=== PATIENT | male | born 1990 | race Caucasian/White ===

== ENCOUNTER 2017-02-17 00:35 | Emergency (ER) | payer SELFPAY ==
[~2017-02-17] VITALS: Ht 180.3 cm; Wt 104.8 kg
[~2017-02-17 00:35] MED LIST: PROM25TA5 PO; ZOFR4TAB3 SL
[2017-02-17 00:55] VITALS: BP 149/97; PULSE 84; RESP 12; TEMP 98.2; O2SAT 97
--- NOTE | 2017-02-17 02:10 | RADHPO ---
EXAM DATE/TIME: 02/17/2017 01:50 [facility] COMPARISON: No previous studies available for comparison. INDICATIONS : Fell hitting left forehead. RADIATION DOSE: 66.40 CTDIvol (mGy) MEDICAL HISTORY : Hypertension. Pancreatitis. Asyhma Pituitary microadenoma SURGICAL HISTORY : None. ENCOUNTER: Initial ACUITY: 1 day PAIN SCALE: 9/10 LOCATION: Left cranial TECHNIQUE: Multiple contiguous axial images were obtained of the head. Using automated exposure control and adj ustment of the mA and/or kV according to patient size, radiation dose was kept as low as reasonably a chievable to obtain optimal diagnostic quality images. FINDINGS: There is a right parietal scalp hematoma. No intracranial hemorrhage, mass effect or shift. No absces ses. No abnormal extra-axial fluid collections. There is chronic opacity in the right maxillary sinus which is diminished in size. No acute bony abnormality. CONCLUSION: 1. No acute intracranial abnormalities. Right parietal scalp hematoma. Latrell Parada MD on February 17, 2017 at 2:06 Board Certified Radiologist. This report was verified electronically.
--- NOTE | 2017-02-17 02:23 | PD ---
HPI Chief Complaint: Head Injury Time Seen by Provider: 01:41 Travel History International Travel<30 days: No Contact w/Intl Traveler<30days: No Traveled to known affect area: No History of Present Illness HPI This is a 26-year-old male who presents to the emergency department having been riding his skateboard when he fell hitting the back of his right head. He says he lost consciousness but is not sure for how long. His mom says he's been intermittently sleepy ever since and hasn't been acting himself. The patient says he has a moderate severity headache in the back of his head, constant with no associated vomiting. He does say he felt nauseous after the incident. He has no other injuries except for some road rash on the side of his abdomen. PFSH Past Medical History ADHD: Yes Asthma: Yes Blood Disorders: No Anxiety: No Depression: No Cancer: No Diabetes: No Diminished Hearing: No Endocrine: No Gastrointestinal Disorders: Yes (report hx of gastroparesis) Genitourinary: No Hypertension: Yes Immune Disorder: No Implanted Vascular Access Dvce: Yes Musculoskeletal: No Neurologic: No Psychiatric: No Reproductive: No Respiratory: Yes (ASTHMA) Immunizations Current: Yes Pancreatitis: Yes (Chronic pancreatitis) Sleep Apnea: No Thyroid Disease: No Tetanus Vaccination: < 5 Years Influenza Vaccination: No PNEUMOCCOCAL Vaccine (Year): 2 Past Surgical History Body Medical Devices: SCREWS/PLATES IN RIGHT WRIST AND RIGHT KNEE Joint Replacement: Yes (RIGHT KNEE AND RIGHT HAND SURGERY ) Other Surgery: Yes (HAND / KNEE SURGERY) Social History Alcohol Use: No Tobacco Use: No Substance Use: No Allergies-Medications (Allergen,Severity, Reaction): Coded Allergies: Ceclor (Verified Allergy, Severe, UNKNOWN REACTION, 02/17/17) Reported Meds & Prescriptions Reported Meds & Active Scripts Active Review of Systems Except as stated in HPI: all other systems reviewed are Neg Physical Exam Narrative GENERAL:Well appearing, no acute distress SKIN: Large posterior scalp hematoma. Abrasion on the right hip and lower abdomen. HEAD: Atraumatic. Normocephalic. EYES: Pupils equal and round. No injection or drainage. ENT: Moist mucous membranes NECK: Trachea midline. No cervical spine tenderness. CARDIOVASCULAR: Regular rate and rhythm. No murmur appreciated. RESPIRATORY: Clear to auscultation. Breath sounds equal bilaterally. GASTROINTESTINAL: Abdomen soft, non-tender, nondistended. MUSCULOSKELETAL: No obvious deformities. NEUROLOGICAL: Awake and alert. No obvious cranial nerve deficits. Moving all extremities. PSYCHIATRIC: Appropriate mood and affect; insight and judgment normal. Data Data Last Documented VS Vital Signs Date Time Temp Pulse Resp B/P Pulse Ox O2 Delivery O2 Flow Rate FiO2 02/17/17 01:27 18 98 Room Air 02/17/17 00:55 98.2 84 149/[address] Brain W/O Iv Contrast(Rout) (02/17/17 ) [facility] Medical Decision Making Medical Screen Exam Complete: Yes Emergency Medical Condition: Yes Interpretation(s) Last [address] 02/17/17 0000 Signed Impressions: Service Date/Time: Sunday, February 17, 2017 01:50 - CONCLUSION: 1. No acute intracranial abnormalities. Right parietal scalp hematoma. Latrell Parada MD Ct Brain W/O Iv Contrast(Rout) (02/17/17 ) Differential Diagnosis Intracranial hemorrhage, concussion, cervical spine fracture Narrative Course This is a 26-year-old male who presents the emergency department having hit his head following falling off a skateboard. He has a large hematoma on exam. CT was obtained which was reassuring. Patient will be discharged home. Diagnosis Primary Impression: Concussion Qualified Code: S06.0X1A - Concussion, with LOC of 30 min or less, initial encounter Additional Impression: Hematoma Patient Instructions: General Instructions Additional Instructions: Return to the emergency department if you develop trouble walking or talking, vomiting, numbness, weakness, or severe headache. A concussion does not usually need treatment. Most concussions get better on their own, but it can take time. Some peoples symptoms go away within minutes to hours. Other people have symptoms for weeks to months. When symptoms last a long time, doctors call it postconcussion syndrome. To help your brain heal after a concussion, you can: Rest your body - Make sure to get plenty of sleep. When you are awake, you should avoid heavy exercise or too much physical activity. Rest your brain - Avoid doing activities that need concentration or a lot of attention. Not drink alcohol for 2 days after the injury Take a pain-relieving medicine, if you have a headache Follow up with your primary care physician in one week if you are not back to your normal self. Med/Other Pt SpecificInfo: No Change to Meds Disposition: 01 DISCHARGE HOME Condition: Stable Stella Atiknson MD Feb 17, 2017 02:23
[2017-02-17 02:48] VITALS: BP 136/78; PULSE 76; RESP 18; O2SAT 98
== END 2017-02-17 02:49 | disposition home or self-care (01) ==
LOC: PHED 00:35
DX: S06.0X1A Concussion with loss of consciousness of 30 minutes or less, initial encounter (principal); S00.03XA Contusion of scalp, initial encounter; V00.131A Fall from skateboard, initial encounter; I10 Essential (primary) hypertension; K86.1 Other chronic pancreatitis
CPT/HCPCS: 70450; 99284

== ENCOUNTER 2017-04-24 18:14 | Observation (INO) | payer SELFPAY ==
[~2017-04-24] VITALS: Ht 180.3 cm; Wt 99.6 kg
[2017-04-24] VITALS (7 sets, daily range): BP systolic 130–152; BP diastolic 61–106; PULSE 62–85; RESP 15–20; TEMP 97.2–98.5; O2SAT 96–99
[~2017-04-24 18:14] MED LIST changes: -PROM25TA5 PO; +PROPOFOL 200 MG/20 ML AMP IV ONE; -ZOFR4TAB3 SL
[2017-04-24] MEDS ORDERED: diphenhydrAMINE HCL 50 MG/ML VIAL IV PUSH ONE (18:30)
[2017-04-24] MEDS ORDERED: SODIUM CHLOR 0.9% 1000 ML INJ 1,000 ML IV ONE (18:30)
[2017-04-24] MEDS ORDERED: METOCLOPRAMIDE HCL 10 MG/2 ML VIAL IV PUSH ONE (18:30)
[2017-04-24] MEDS ORDERED: SODIUM CHLORIDE 0.9% FLUSH 10 ML FLUSH IV FLUSH PRN ×2 (18:30→21:00)
--- NOTE | 2017-04-24 18:34 | PD ---
HPI Chief Complaint: GI Complaint Time Seen by Provider: 18:30 Travel History International Travel<30 days: No Contact w/Intl Traveler<30days: No Traveled to known affect area: No History of Present Illness HPI 26-year-old male patient with history of gastroparesis, chronic pancreatitis, presents to the ER today for 1 week history of nausea, vomiting, and epigastric tenderness at 10/10 abdominal pains. He denies any fevers, diarrhea, or any other symptoms. He states the pain radiates to his back. Modifying Factors: None Associated Signs & Symptoms: Nausea, vomiting, epigastric abdominal pain Risk Factors: History of gastroparesis and pancreatitis PFSH Past Medical History ADHD: Yes Asthma: Yes Autoimmune Disease: No Blood Disorders: No Anxiety: No Depression: No Cancer: No Diabetes: No Diminished Hearing: No Endocrine: No Gastrointestinal Disorders: Yes (report hx of gastroparesis) Genitourinary: No Hypertension: Yes Immune Disorder: No Implanted Vascular Access Dvce: Yes Musculoskeletal: No Neurologic: No Psychiatric: No Reproductive: No Respiratory: Yes (ASTHMA) Immunizations Current: Yes Pancreatitis: Yes (Chronic pancreatitis) Sleep Apnea: No Thyroid Disease: No Tetanus Vaccination: < 5 Years Influenza Vaccination: Yes PNEUMOCCOCAL Vaccine (Year): 2 Past Surgical History Body Medical Devices: SCREWS/PLATES IN RIGHT WRIST AND RIGHT KNEE Joint Replacement: Yes (RIGHT KNEE AND RIGHT HAND SURGERY ) Other Surgery: Yes (HAND / KNEE SURGERY) Social History Alcohol Use: No Tobacco Use: No Substance Use: No Allergies-Medications (Allergen,Severity, Reaction): Coded Allergies: cefaclor (Unverified Allergy, Severe, UNKNOWN REACTION, 04/24/17) Reported Meds & Prescriptions Reported Meds & Active Scripts Active No Active Prescriptions or Reported Medications Review of Systems Except as stated in HPI: all other systems reviewed are Neg Physical Exam Narrative GENERAL: Well-developed young white male patient currently in mild distress. Awake and oriented 3. SKIN: Focused skin assessment warm/dry. HEAD: Atraumatic. Normocephalic. EYES: Pupils equal and round. No scleral icterus. No injection or drainage. ENT: No nasal bleeding or discharge. Mucous membranes pink and moist. NECK: Trachea midline. No JVD. CARDIOVASCULAR: Regular rate and rhythm. No murmur appreciated. RESPIRATORY: No accessory muscle use. Clear to auscultation. Breath sounds equal bilaterally. GASTROINTESTINAL: Abdomen soft, epigastric and left upper quadrant tenderness without guarding or rebound, nondistended. Hepatic and splenic margins not palpable. MUSCULOSKELETAL: No obvious deformities. No clubbing. No cyanosis. No edema. NEUROLOGICAL: Awake and alert. No obvious cranial nerve deficits. Motor grossly within normal limits. Normal speech. PSYCHIATRIC: Appropriate mood and affect; insight and judgment normal. Data Data Last Documented VS Vital Signs Date Time Temp Pulse Resp B/P (MAP) Pulse Ox O2 Delivery O2 Flow Rate FiO2 04/24/17 18:31 97 Room Air 04/24/17 18:18 98.0 78 15 152/98 (116) Orders Orders Complete Blood Count With Diff (04/24/17 18:26) Comprehensive Metabolic Panel (04/24/17 18:) Lipase (04/24/17 18:) Iv Access Insert/Monitor (04/24/17 18:26) Ecg Monitoring (04/24/17 18:26) Oximetry (04/24/17 18:) Sodium Chloride 0.9% Flush (Ns Flush) (04/24/17 18:30) Sodium Chlor 0.9% 1000 Ml Inj (Ns 1000 M (04/24/17 18:30) Metoclopramide Inj (Reglan Inj) (04/24/17 18:30) Diphenhydramine Inj (Benadryl Inj) (04/24/17 18:30) Labs Laboratory Tests Test 04/24/17 18:30 White Blood Count 8.6 TH/MM3 Red Blood Count 5.44 MIL/MM3 Hemoglobin 16.1 GM/DL Hematocrit 47.7 % Mean Corpuscular Volume 87.6 FL Mean Corpuscular Hemoglobin 29.6 PG Mean Corpuscular Hemoglobin Concent 33.8 % Red Cell Distribution Width 11.7 % Platelet Count 258 TH/MM3 Mean Platelet Volume 8.6 FL Neutrophils (%) (Auto) 81.3 % Lymphocytes (%) (Auto) 13.1 % Monocytes (%) (Auto) 4.6 % Eosinophils (%) (Auto) 0.3 % Basophils (%) (Auto) 0.7 % Neutrophils # (Auto) 7.0 TH/MM3 Lymphocytes # (Auto) 1.1 TH/MM3 Monocytes # (Auto) 0.4 TH/MM3 Eosinophils # (Auto) 0.0 TH/MM3 Basophils # (Auto) 0.1 TH/MM3 CBC Comment DIFF FINAL Differential Comment Sodium Level 139 MEQ/L Potassium Level 3.8 MEQ/L Chloride Level 105 MEQ/L [facility]DM Medical Decision Making Medical Screen Exam Complete: Yes Emergency Medical Condition: Yes Medical Record Reviewed: Yes Interpretation(s) Laboratory Tests Test 04/24/17 18:30 Neutrophils (%) (Auto) 81.3 % (16.0-70.0) Differential Diagnosis Nausea, vomiting, abdominal pains: gastroparesis versus gastritis versus pancreatitis versus gastritis versus other acute intra-abdominal processes Narrative Course Lab work was ordered and IV fluids, Reglan, and Benadryl ordered for the patient. Physician Communication Physician Communication Case is signed out to Dr. Johnson at 7 PM pending lab work for disposition. Diagnosis Primary Impression: Nausea & vomiting Scripts No Active Prescriptions or Reported Meds Condition: Stable Kaylen Almazan MD Apr 24, 2017 18:34
[2017-04-24 18:44] LABS: BASOPHIL # 0.1 TH/MM3 (0-0.2); BASOPHIL % 0.7 % (0.0-2.0); EOSINOPHIL % 0.3 % (0.0-4.0); HEMATOCRIT 47.7 % (39.0-51.0); HEMO FLAGS DIFF FINAL; LYMPH % 13.1 % (9.0-44.0); LYMPHOCYTE # 1.1 TH/MM3 (1.0-4.8); MEAN CELL VOLUME 87.6 FL (80.0-100.0); MEAN CORPUSCULAR HEMOGLOBIN 29.6 PG (27.0-34.0); MEAN CORPUSCULAR HGB CONC 33.8 % (32.0-36.0); MONO % 4.6 % (0.0-8.0); NEUT % 81.3 % (16.0-70.0); PLATELET COUNT 258 TH/MM3 (150-450); RED BLOOD COUNT 5.44 MIL/MM3 (4.50-5.90); RED CELL DISTRIBUTION WIDTH 11.7 % (11.6-17.2); WHITE BLOOD COUNT 8.6 TH/MM3 (4.0-11.0)
[2017-04-24 18:52] LABS: CHLORIDE 105 MEQ/L (98-107); POTASSIUM 3.8 MEQ/L (3.5-5.1); SODIUM (NA) 139 MEQ/L (136-145)
[2017-04-24 18:56] LABS: ANION GAP 5 MEQ/L (5-15); BICARBONATE 28.6 MEQ/L (21.0-32.0)
[2017-04-24 18:57] LABS: BLOOD UREA NITROGEN 9 MG/DL (7-18)
[2017-04-24 18:59] LABS: ALT (GPT) 20 U/L (12-78); AST (GOT) 12 U/L (15-37); GLOMERULAR FILTRATION RATE 91 ML/MIN (>89)
[2017-04-24 19:01] LABS: TOTAL BILIRUBIN ADULT 0.8 MG/DL (0.2-1.0)
[2017-04-24 19:02] LABS: ALKALINE PHOSPHATASE 49 U/L (45-117)
--- NOTE | 2017-04-24 19:40 | PD ---
Physical Exam Time Seen by Provider: 19:31 Narrative The patient is a 26-year-old male that has had since age 18 episodes of nausea and vomiting. He is brought in today by his mother because of vomiting for one month. He has not been vomiting blood. The mother states he has been seen by 3 kettle worker and they came up with chronic pancreatitis, gastroparesis but endoscopies have been negative according to the mother. The mother is extremely angry and frustrated. The patient denies any fever. He cannot hold a job because of his vomiting and has tried 5 different jobs in the last 3 months. He does not currently have a primary care physician or a kettle worker. He does not drink alcohol and he does not abuse drugs. Lactose intolerant diet has been tried without success. The mother is extremely frustrated and states her son was lying on the floor crying today. The mother states he has lost 40 pounds in the last 3 months. Data Data Last Documented VS Vital Signs Date Time Temp Pulse Resp B/P (MAP) Pulse Ox O2 Delivery O2 Flow Rate FiO2 04/24/17 20:25 98.2 85 18 133/81 (98) 99 Room Air Orders Orders Complete Blood Count With Diff (04/24/17 18:26) Comprehensive Metabolic Panel (04/24/17 18:26) Lipase (04/24/17 18:26) Iv Access Insert/Monitor (04/24/17 18:26) Ecg Monitoring (04/24/17 18:26) Oximetry (04/24/17 18:26) Sodium Chloride 0.9% Flush (Ns Flush) (04/24/17 18:30) Sodium Chlor 0.9% 1000 Ml Inj (Ns 1000 M (04/24/17 18:30) Metoclopramide Inj (Reglan Inj) (04/24/17 18:30) Diphenhydramine Inj (Benadryl Inj) (04/24/17 18:30) Hydromorphone Pf Inj (Dilaudid Pf Inj) (04/24/17 20:30) Ondansetron Inj (Zofran Inj) (04/24/17 20:30) Labs Laboratory Tests Test 04/24/17 18:30 White Blood Count 8.6 TH/MM3 Red Blood Count 5.44 MIL/MM3 Hemoglobin 16.1 GM/DL Hematocrit 47.7 % Mean Corpuscular Volume 87.6 FL Mean Corpuscular Hemoglobin 29.6 PG Mean Corpuscular Hemoglobin Concent 33.8 % Red Cell Distribution Width 11.7 % Platelet Count 258 TH/MM3 Mean Platelet Volume 8.6 FL Neutrophils (%) (Auto) 81.3 % Lymphocytes (%) (Auto) 13.1 % Monocytes (%) (Auto) 4.6 % Eosinophils (%) (Auto) 0.3 % Basophils (%) (Auto) 0.7 % Neutrophils # (Auto) 7.0 TH/MM3 Lymphocytes # (Auto) 1.1 TH/MM3 Monocytes # (Auto) 0.4 TH/MM3 Eosinophils # (Auto) 0.0 TH/MM3 Basophils # (Auto) 0.1 TH/MM3 CBC Comment DIFF FINAL Differential Comment Blood Urea Nitrogen 9 MG/DL Creatinine 1.00 MG/DL Random Glucose 107 MG/DL Total Protein 7.4 GM/DL Albumin 4.0 GM/DL Calcium Level 8.8 MG/DL Alkaline Phosphatase 49 U/L Aspartate Amino Transf (AST/SGOT) 12 U/L Alanine Aminotransferase (ALT/SGPT) 20 U/L Total Bilirubin 0.8 MG/DL Sodium Level 139 MEQ/L Potassium Level 3.8 MEQ/L Chloride Level 105 MEQ/L Carbon Dioxide Level 28.6 MEQ/L Anion Gap 5 MEQ/L Estimat Glomerular Filtration Rate 91 ML/MIN Lipase 186 U/L [facility] Medical Record Reviewed: Yes Supervised Visit with MAGO: Yes Differential Diagnosis Gastroparesis, electrolyte disorder, dehydration, pancreatitis, ulcer pain Narrative Course The patient has recurrent vomiting etiology undetermined. Unfortunately, gastroenterology has been unable to clearly define his problem. Nevertheless, the patient needs to follow-up with a kettle worker. Mother says the patient has lost 40 pounds in the last 3 months. The patient is not and then does not look malnourished. Diagnosis Primary Impression: Intractable abdominal pain Additional Impression: Intractable vomiting Ruled Out: Nausea & vomiting, Abdominal pain Admitting Information Admitting Physician Requests: Admit Scripts No Active Prescriptions or Reported Meds Condition: Stable Kana Johnson MD Apr 24, 2017 19:40
[2017-04-24] MEDS ORDERED: HYDROmorphone HCL PF 1 MG/ML VIAL IVP ONE (20:30)
[2017-04-24] MEDS ORDERED: ONDANSETRON HCL 4 MG/2 ML VIAL IV ONE (20:30)
[2017-04-24] MEDS: SODIUM CHLORIDE 0.9% FLUSH 10 ML FLUSH IV FLUSH SCH (21:00)
[2017-04-24] MEDS ORDERED: METOCLOPRAMIDE HCL 10 MG/2 ML VIAL IV PUSH PRN (21:00)
[2017-04-24] MEDS ORDERED: NALOXONE HCL 0.4 MG/ML AMP IV PRN (21:00)
[2017-04-24] MEDS: SODIUM CHLOR 0.9% 1000 ML INJ 1,000 ML IV SCH (21:50)
[2017-04-25] VITALS (7 sets, daily range): BP systolic 127–147; BP diastolic 68–106; PULSE 62–76; RESP 16–20; TEMP 96.7–98.5; O2SAT 95–99
[2017-04-25] MEDS: HYDROmorphone HCL PF 1 MG/ML VIAL IV PUSH PRN ×5 (00:37→21:44)
[2017-04-25] MEDS: SODIUM CHLOR 0.9% 1000 ML INJ 1,000 ML IV SCH ×2 (06:26→08:32)
[2017-04-25 06:49] LABS: CHLORIDE 107 MEQ/L (98-107); POTASSIUM 3.6 MEQ/L (3.5-5.1); SODIUM (NA) 141 MEQ/L (136-145)
[2017-04-25 06:50] LABS: AUTOMATED NEUTROPHIL # 3.8 TH/MM3 (1.8-7.7); BASOPHIL % 0.2 % (0.0-2.0); EOSINOPHIL # 0.2 TH/MM3 (0-0.4); EOSINOPHIL % 3.1 % (0.0-4.0); HEMO FLAGS DIFF FINAL; LYMPH % 34.3 % (9.0-44.0); LYMPHOCYTE # 2.4 TH/MM3 (1.0-4.8); MEAN CELL VOLUME 87.9 FL (80.0-100.0); MEAN CORPUSCULAR HEMOGLOBIN 30.1 PG (27.0-34.0); MEAN CORPUSCULAR HGB CONC 34.2 % (32.0-36.0); MONO % 6.8 % (0.0-8.0); NEUT % 55.6 % (16.0-70.0); PLATELET COUNT 205 TH/MM3 (150-450); RED BLOOD COUNT 4.77 MIL/MM3 (4.50-5.90); RED CELL DISTRIBUTION WIDTH 12.1 % (11.6-17.2); WHITE BLOOD COUNT 6.9 TH/MM3 (4.0-11.0)
[2017-04-25 07:15] LABS: ALKALINE PHOSPHATASE 41 U/L (45-117); ALT (GPT) 15 U/L (12-78); ANION GAP 6 MEQ/L (5-15); AST (GOT) 9 U/L (15-37); BICARBONATE 27.9 MEQ/L (21.0-32.0); BLOOD UREA NITROGEN 6 MG/DL (7-18); GLOMERULAR FILTRATION RATE 97 ML/MIN (>89)
[2017-04-25] MEDS: SODIUM CHLORIDE 0.9% FLUSH 10 ML FLUSH IV FLUSH SCH ×2 (08:50→20:23)
--- NOTE | 2017-04-25 20:42 | HHI.HP ---
[facility] No Primary Care Physician Admission Diagnosis intractable abdominal pain/vomiting Diagnoses: Travel History International Travel<30 Days: No Contact w/Intl Traveler <30 Da: No Traveled to Known Affected Are: No History of Present Illness 26-year-old male with a history of recurrent pancreatitis, who presents with a 2 month history of worsening twisting epigastric pain radiating to back, with nausea and vomiting over the last 2 days, unable to keep anything down. Patient reports weight loss of 40 pounds over the past 2 months secondary to nausea, pain, decreased appetite. He denies any fevers, constipation, diarrhea. Review of Systems Except as stated in HPI: all other systems reviewed are Neg Past Family Social History Past Medical History Asthma ADHD Gastroparesis Pancreatitis Hypertension. Patient states this is only when he has pain. Past Surgical History Right wrist and right knee surgery. Reported Medications Reported Meds & Active Scripts Active No Active Prescriptions or Reported Medications Allergies: Coded Allergies: cefaclor (Unverified Allergy, Severe, UNKNOWN REACTION, 04/24/17) Family History Mother with chronic pancreatitis. Father hypertension Social History Nonsmoker. Nondrinker. Patient denies illicit drugs. Physical Exam Vital Signs Vital Signs Date Time Temp Pulse Resp B/P (MAP) Pulse Ox O2 Delivery O2 Flow Rate FiO2 04/25/17 16:00 97.5 74 16 147/97 (114) 95 04/25/17 12:00 97.8 63 16 137/84 (101) 98 04/25/17 08:00 62 04/25/17 08:00 97.4 63 16 127/68 (87) 95 04/25/17 04:00 96.7 76 18 128/73 (91) 96 04/25/17 00:00 97.2 67 20 144/106 (119) 99 04/24/17 23:46 62 04/24/17 23:35 97.2 67 20 144/106 (119) 99 04/24/17 23:00 98.5 84 18 130/61 (84) 95 04/24/17 21:53 98.5 68 18 131/66 (87) 96 Room Air Physical Exam GENERAL: This is a well-nourished, well-developed patient,who appears uncomfortable. Alert and oriented 3. SKIN: No rashes, ecchymoses or lesions. Cool and dry. HEAD: Atraumatic. Normocephalic. No temporal or scalp tenderness. EYES: Pupils equal round and reactive. Extraocular motions intact. No scleral icterus. No injection or drainage. ENT: Nose without bleeding, purulent drainage or septal hematoma. Throat without erythema, tonsillar hypertrophy or exudate. Uvula midline. Airway patent. NECK: Trachea midline. No JVD or lymphadenopathy. Supple, nontender, no meningeal signs. CARDIOVASCULAR: Regular rate and rhythm without murmurs, gallops, or rubs. RESPIRATORY: Clear to auscultation. Breath sounds equal bilaterally. No wheezes , rales, or rhonchi. GASTROINTESTINAL: Abdomen soft,tender to moderate palpation in the epigastrium. Positive bowel sounds. No rebound or guarding. MUSCULOSKELETAL: Extremities without clubbing, cyanosis, or edema. No joint tenderness, effusion, or edema noted. No calf tenderness. Negative Homans sign bilaterally. NEUROLOGICAL: Awake and alert. Cranial nerves II through XII intact. Motor and sensory grossly within normal limits. Five out of 5 muscle strength in all muscle groups. Normal speech. Laboratory Laboratory Tests Test 04/25/17 05:30 04/25/17 19:45 White Blood Count 6.9 Red Blood Count 4.77 Hemoglobin 14.4 Hematocrit 42.0 Mean Corpuscular Volume 87.9 Mean Corpuscular Hemoglobin 30.1 Mean Corpuscular Hemoglobin Concent 34.2 Red Cell Distribution Width 12.1 Platelet Count 205 Mean Platelet Volume 9.0 Neutrophils (%) (Auto) 55.6 Lymphocytes (%) (Auto) 34.3 Monocytes (%) (Auto) 6.8 Eosinophils (%) (Auto) 3.1 Basophils (%) (Auto) 0.2 Neutrophils # (Auto) 3.8 Lymphocytes # (Auto) 2.4 Monocytes # (Auto) 0.5 Eosinophils # (Auto) 0.2 Basophils # (Auto) 0.0 CBC Comment DIFF FINAL Differential Comment Blood Urea Nitrogen 6 Creatinine 0.95 Random Glucose 83 Total Protein 6.1 Albumin 3.1 Calcium Level 8.0 Alkaline Phosphatase 41 Aspartate Amino Transf (AST/SGOT) 9 Alanine Aminotransferase (ALT/SGPT) 15 Total Bilirubin 1.0 Sodium Level 141 Potassium Level 3.6 Chloride Level 107 Carbon Dioxide Level 27.9 Anion Gap 6 Estimat Glomerular Filtration Rate 97 Lipase 457 Urine Opiates Screen NEG Urine Barbiturates Screen NEG Urine Amphetamines Screen NEG Urine Benzodiazepines Screen NEG Urine Cocaine Screen NEG Urine Cannabinoids Screen POS Result Diagram: 04/25/1752904/25/17529 Caprini VTE Risk Assessment Caprini VTE Risk Assessment: No/Low Risk (score <= 1) Caprini Risk Assessment Model Point Value = 1 Point Value = 2 Point Value = 3 Point Value = 5 Age 41-60 Minor surgery BMI > 25 kg/m2 Swollen legs Varicose veins or History of unexplained or recurrent spontaneous Oral contraceptives or hormone replacement Sepsis (< 1 month) Serious lung disease, including pneumonia (< 1 month) Abnormal pulmonary function Acute myocardial infarction Congestive heart failure (< 1 month) History of inflammatory bowel disease Medical patient at bed rest Age 61-74 Arthroscopic surgery Major open surgery (> 45 min) Laparoscopic surgery (> 45 min) Malignancy Confined to bed (> 72 hours) Immobilizing plaster cast Central venous access Age >= 75 History of VTE Family history of VTE Factor V Leiden Prothrombin [id number] Lupus anticoagulant Anticardiolipin antibodies Elevated serum homocysteine Heparin-induced thrombocytopenia Other congenital or acquired thrombophilia Stroke (< 1 month) Elective arthroplasty Hip, pelvis, or leg fracture Acute spinal cord injury (< 1 month) Prophylaxis Regimen Total Risk Factor Score Risk Level Prophylaxis Regimen 0-1 Low Early ambulation 2 Moderate Order ONE of the following: *Sequential Compression Device (SCD) *Heparin 5000 units SQ BID 3-4 Higher Order ONE of the following medications: *Heparin 5000 units SQ TID *Enoxaparin/Lovenox 40 mg SQ daily (WT < 150 kg, CrCl > 30 mL/min) *Enoxaparin/Lovenox 30 mg SQ daily (WT < 150 kg, CrCl > 10-29 mL/min) *Enoxaparin/Lovenox 30 mg SQ BID (WT < 150 kg, CrCl > 30 mL/min) AND/OR *Sequential Compression Device (SCD) 5 or more Highest Order ONE of the following medications: *Heparin 5000 units SQ TID (Preferred with Epidurals) *Enoxaparin/Lovenox 40 mg SQ daily (WT < 150 kg, CrCl > 30 mL/min) *Enoxaparin/Lovenox 30 mg SQ daily (WT < 150 kg, CrCl > 10-29 mL/min) *Enoxaparin/Lovenox 30 mg SQ BID (WT < 150 kg, CrCl > 30 mL/min) AND *Sequential Compression Device (SCD) Assessment and Plan Assessment and Plan //Recurrent pancreatitis. //Nausea and vomiting. -Lipase in the 400s. -CT abdomen last month but no acute pancreatic findings. Lipase could be elevated secondary to nausea and vomiting. There is a possibility of marijuana hyperemesis syndrome. Patient denies marijuana use, however positive on tox screen. -Abdominal film ordered. -Due to recurrent nature pancreatitis, nausea, vomiting, history of gastroparesis. We'll consult gastroenterology. Continue antiemetics and IV fluids. //Marijuana use. Suspected. Positive urine toxicology screen. Patient denies. We'll discuss with the patient. Discussed Condition With patient, nurse. Ricardo Raines MD Apr 25, 2017 20:42
--- NOTE | 2017-04-25 22:42 | RADRPT ---
EXAM DATE/TIME: 04/25/2017 22:08 [facility] COMPARISON: No previous studies available for comparison. INDICATIONS : Abdominal pain. MEDICAL HISTORY : Hypertension. Pancreatitis. Asthma, Gastroparesis SURGICAL HISTORY : None. ENCOUNTER: Initial ACUITY: 1 day PAIN SCORE: 7/10 LOCATION: all quadrants. FINDINGS: Supine view of the abdomen was performed. The abdominal bowel gas pattern is nonspecific without twyla dence for obstruction. No acute bony abnormality. CONCLUSION: 1. No acute findings. Latrell Parada MD on April 25, 2017 at 22:39 Board Certified Radiologist. This report was verified electronically.
[2017-04-26] VITALS: BP 145/97; PULSE 69; RESP 20; TEMP 97.1; O2SAT 99
[2017-04-26] MEDS: HYDROmorphone HCL PF 1 MG/ML VIAL IV PUSH PRN ×6 (01:41→23:16)
[2017-04-26] MEDS: SODIUM CHLOR 0.9% 1000 ML INJ 1,000 ML IV SCH ×3 (01:51→23:14)
[2017-04-26 05:56] LABS: AUTOMATED NEUTROPHIL # 3.6 TH/MM3 (1.8-7.7); BASOPHIL # 0.1 TH/MM3 (0-0.2); EOSINOPHIL # 0.2 TH/MM3 (0-0.4); EOSINOPHIL % 3.4 % (0.0-4.0); HEMATOCRIT 44.9 % (39.0-51.0); HEMO FLAGS DIFF FINAL; LYMPH % 35.4 % (9.0-44.0); LYMPHOCYTE # 2.5 TH/MM3 (1.0-4.8); MEAN CELL VOLUME 87.9 FL (80.0-100.0); MEAN CORPUSCULAR HEMOGLOBIN 30.1 PG (27.0-34.0); MEAN CORPUSCULAR HGB CONC 34.2 % (32.0-36.0); MONO % 7.4 % (0.0-8.0); NEUT % 52.8 % (16.0-70.0); PLATELET COUNT 218 TH/MM3 (150-450); RED BLOOD COUNT 5.11 MIL/MM3 (4.50-5.90); RED CELL DISTRIBUTION WIDTH 11.9 % (11.6-17.2); WHITE BLOOD COUNT 6.9 TH/MM3 (4.0-11.0)
[2017-04-26 06:09] LABS: POTASSIUM 3.4 MEQ/L (3.5-5.1)
[2017-04-26 06:11] LABS: BICARBONATE 26.1 MEQ/L (21.0-32.0)
[2017-04-26 08:00] VITALS: BP 120/79; PULSE 51; PULSE 56; RESP 17; TEMP 97.1; O2SAT 95
[2017-04-26] MEDS: SODIUM CHLORIDE 0.9% FLUSH 10 ML FLUSH IV FLUSH SCH ×2 (08:39→22:13)
--- NOTE | 2017-04-26 10:17 | RADRPT ---
EXAM DATE/TIME: 04/26/2017 08:10 [facility] COMPARISON: CT ABDOMEN & PELVIS W/O CONTRAST, April 08, 2016, 2:25. INDICATIONS : Increased lab values. Pancreatitis. MEDICAL HISTORY : Hypertension. Asthma. Gastroparesis. Chronic pancreatitis. SURGICAL HISTORY : Orthopedic surgery, right hand and right knee. ENCOUNTER: Initial ACUITY: 1 day PAIN SCORE: 5/10 LOCATION: Abdomen. MEASUREMENTS: LIVER: 14.0 cm length COMMON DUCT: 4 mm RIGHT KIDNEY: 10.0 X 4.6 X 4.9 cm SPLEEN: 10.7 cm length FINDINGS: LIVER: Normal echotexture without focal lesion or ductal dilatation. COMMON DUCT: No intraluminal mass or stone visualized. GALLBLADDER: Contains no stones, demonstrates no wall thickening or pericholecystic fluid. PANCREAS: Not adequately visualized secondary to overlying bowel gas. RIGHT KIDNEY: No hydronephrosis, stone or mass. SPLEEN: No focal lesion. CONCLUSION: 1. Examination is within normal limits. 2. Please note that the pancreas is not adequately visualized due to bowel gas. Good Trujillo MD on April 26, 2017 at 10:14 Board Certified Radiologist. This report was verified electronically.
[2017-04-26 12:00] VITALS: BP 118/75; PULSE 65; RESP 18; TEMP 97.6; O2SAT 96
[2017-04-26] MEDS: ONDANSETRON HCL 4 MG/2 ML VIAL IVP PRN ×2 (12:13→22:13)
[2017-04-26] MEDS ORDERED: DRONABINOL 5 MG CAP PO ONE (13:00)
--- NOTE | 2017-04-26 15:32 | HHI.PR ---
Subjective Remarks Patient seen this morning. Reports continued nausea, without vomiting. Reports abdominal pain continues. I notify patient of positive urine for marijuana. He does state that hot showers make his nausea go away. He will try to quit marijuana to see if this helps with his nausea. Objective Vital Signs Date Time Temp Pulse Resp B/P (MAP) Pulse Ox O2 Delivery O2 Flow Rate FiO2 04/26/17 12:00 97.6 65 18 118/75 (89) 96 04/26/17 08:00 97.1 56 17 120/79 (93) 95 04/26/17 00:00 97.1 69 20 145/97 (113) 99 04/25/17 20:25 64 04/25/17 20:00 98.5 70 20 145/96 (112) 98 04/25/17 16:00 97.5 74 16 147/97 (114) 95 I/O 04/25/17 04/25/17 04/25/17 04/26/17 04/26/17 04/26/17 06:59 14:59 22:59 06:59 14:59 22:59 Intake Total 440.00 ml 894 ml 2856 ml 0 ml 0 ml Output Total 250 ml Balance 440.00 ml 894 ml 2606 ml 0 ml 0 ml Intake Oral 310 ml 960 ml 0 ml 0 ml IV Total 130.00 ml 894 ml 1896 ml Output Urine Total 250 ml # Voids 1 16 2 # Bowel Movements 0 0 0 Result Diagram: 04/26/17 0505 04/26/17 0505 Objective Remarks GENERAL: Patient lying in bed. Sleeping, wakes up for exam. Alert and oriented 3. SKIN: Warm and dry. HEAD: Normocephalic. EYES: No scleral icterus. No injection or drainage. NECK: Supple, trachea midline. No JVD. CARDIOVASCULAR: Regular rate and rhythm without murmurs, gallops, or rubs. RESPIRATORY: Breath sounds equal bilaterally. No accessory muscle use. GASTROINTESTINAL: Abdomen soft. Tender to moderate palpation in the epigastrium. MUSCULOSKELETAL: No cyanosis, or edema. BACK: Nontender without obvious deformity. No CVA tenderness. A/P Assessment and Plan ==04/26/17========= -Hypokalemia. Potassium 3.4. Replaced. -Reviewed abdominal film and ultrasound, both negative. -Suspected marijuana hyperemesis syndrome. We'll try Marinol which is on the formulary for nausea. Gastroenterology following. Appreciate assistance. //Recurrent pancreatitis. //Nausea and vomiting. //Suspected marijuana hyperemesis syndrome. //History of gastroparesis -Lipase in the 400s. Possibly from vomiting. -CT abdomen last month but no acute pancreatic findings. Lipase could be elevated secondary to nausea and vomiting. There is a possibility of marijuana hyperemesis syndrome. Patient denies marijuana use, however positive on tox screen. -Abdominal film reviewed and neg. US reviewed and negative. -We'll try Marinol for nausea. -Follow up GI recommendations. //Marijuana use. -Patient says he will try to stop smoking Discharge Planning Possible discharge home tomorrow if nausea and pain improved. Ricardo Raines MD Apr 26, 2017 15:32
[2017-04-26 16:00] VITALS: BP_SYST 126; BP_SYST 129; BP_DIAS 66; BP_DIAS 85; PULSE 63; PULSE 83; RESP 17; RESP 18; TEMP 96.9; TEMP 97.5; O2SAT 99
[2017-04-26] MEDS: DRONABINOL 5 MG CAP PO SCH (16:00)
--- NOTE | 2017-04-26 18:19 | MB ---
cc: ROMELIA MARTEL M.D. DATE OF CONSULTATION: 04/26/2017. REASON FOR CONSULTATION: Abdominal pain. Recurrent pancreatitis. Nausea and vomiting. REFERRING PHYSICIAN: Dr. Raines. HISTORY OF PRESENT ILLNESS: Mr. Hayes is a 26-year-old gentleman who was diagnosed with gastroparesis at age 19. The patient had worsening abdominal pain for the last couple of days and that is why he came to the emergency room for further evaluation and treatment. The patient states he is also having severe nausea and vomiting. No regurgitation. He reports having lost 40 pounds, even though looking back at his weight, it seems to be stable over the last ten years at least. He does have recurrent pancreatitis, etiology of this unknown. He denies any alcohol use. The patient had an endoscopy in 2009 essentially suggestive of gastritis, esophagitis and biopsies were negative. He does report using marijuana on a regular basis, which could be a cause of his problems. He denies any constipation or diarrhea. The patient reports pain mostly in the epigastrium triggered by food. PAST MEDICAL HISTORY: 1. Asthma. 2. Attention deficit hyperactivity disorder. 3. Gastroparesis. 4. Pancreatitis. 5. Hypertension. PAST SURGICAL HISTORY: 1. Right wrist surgery. 2. Right knee surgery. ALLERGIES: CEFACLOR. FAMILY HISTORY: The mother had high blood pressure and pancreatitis. SOCIAL HISTORY: Denies smoking, drinking or drug use other than marijuana. REVIEW OF SYSTEMS: CONSTITUTIONAL: He denies any fever or chills. He reports weight loss, decreased appetite. HEAD, EYES, EARS, NOSE, THROAT: No alteration in baseline hearing or visual acuity. PULMONARY: Denies any chest pain or shortness of breath. GASTROINTESTINAL: As above. GENITOURINARY: Denies any dysuria or hematuria. HEMATOLOGICAL: No history of anemia or bleeding disorder. SKIN: No alteration in baseline skin lesions. NEUROLOGICAL: No history of TIA or CVA kind of symptoms. PHYSICAL EXAMINATION: GENERAL: On clinical exam, he is sitting in bed in no acute distress. VITAL SIGNS: Temperature is 96.9, pulse 63, respirations 18, blood pressure 129/85. HEAD, EYES, EARS, NOSE, THROAT: Pupils equal, round and reactive to light and accommodation. NECK: No jugular venous distention. No lymphadenopathy. CHEST: Clear to auscultation and palpation. CARDIOVASCULAR: S1-S2 no murmur. ABDOMEN: Abdomen soft and nontender. Bowel sounds are present. BIODIESEL PRODUCT MANAGER: Awake, alert and oriented times three. No focal signs identified. LABORATORY DATA: His white count is 6.9, hemoglobin 15.4, platelet count 218,000. Chemistry: Albumin is 3.1, lipase 457, glucose 85 (on admission 107). IMAGING STUDIES: The patient had an ultrasound of the abdomen which showed a normal examination. Last CT abdomen and pelvis was done in 2014 which showed some kidney stones, otherwise negative. IMPRESSION: Mr. Hayes is a 26-year-old gentleman with recurrent abdominal pain, nausea and vomiting, possibly secondary to gastroparesis and pancreatitis, nausea and vomiting, history of heavy marijuana use, possible cannabinoid syndrome, history of pancreatitis unclear etiology, history of gastroparesis, etiology unclear, possible triggered by cannabis use. RECOMMENDATIONS: 1. Upper endoscopy will be scheduled in the morning to rule out peptic ulcer disease and celiac disease. 2. Will order an MRCP to further evaluate for any other pathology for his recurrent pancreatitis. 3. Supportive care. 4. IV hydration. 5. Continue proton pump inhibitor. 6. Reglan PRN. 7. The patient was counselled about stopping cannabis use, which could be the cause of his symptoms. The risks and benefits were discussed with the patient and his mother. Thank you again. Will continue to follow the patient along with you. MD REGGIE KennyB/DEONNA /5:56 PM /6:[address] [facility]
[2017-04-26 20:00] VITALS: BP 120/82; PULSE 59; PULSE 61; RESP 16; TEMP 97.6; O2SAT 98
[2017-04-27] VITALS: BP 136/96; PULSE 50; RESP 18; TEMP 96.2; O2SAT 96
[2017-04-27 04:00] VITALS: BP 131/86; PULSE 62; RESP 18; TEMP 96; O2SAT 96
[2017-04-27] MEDS: HYDROmorphone HCL PF 1 MG/ML VIAL IV PUSH PRN ×3 (05:25→15:56)
[2017-04-27 06:45] VITALS: BP 131/86; PULSE 62; RESP 18; TEMP 98; O2SAT 96
[2017-04-27 06:56] LABS: AUTOMATED NEUTROPHIL # 3.8 TH/MM3 (1.8-7.7); BASOPHIL % 0.2 % (0.0-2.0); EOSINOPHIL # 0.2 TH/MM3 (0-0.4); EOSINOPHIL % 2.9 % (0.0-4.0); HEMO FLAGS DIFF FINAL; LYMPH % 30.1 % (9.0-44.0); LYMPHOCYTE # 1.9 TH/MM3 (1.0-4.8); MEAN CELL VOLUME 87.6 FL (80.0-100.0); MEAN CORPUSCULAR HGB CONC 34.2 % (32.0-36.0); MONO % 8.6 % (0.0-8.0); NEUT % 58.2 % (16.0-70.0); PLATELET COUNT 219 TH/MM3 (150-450); RED BLOOD COUNT 5.36 MIL/MM3 (4.50-5.90); RED CELL DISTRIBUTION WIDTH 11.9 % (11.6-17.2); WHITE BLOOD COUNT 6.4 TH/MM3 (4.0-11.0)
--- NOTE | 2017-04-27 07:19 | GIPROC ---
[facility] [address] [place] [address], [id number] EGD PROCEDURE REPORT EXAM DATE: 04/27/2017 PATIENT NAME: Raul Hayes MR #: [id number] BIRTHDATE: 1990 ATTENDING: Jeannette Cowan MD ORDER #: [id number] APN: Chandu Chandra and Cindy Krishna STATUS: inpatient INDICATIONS: The patient is a 26 yr old male here for an EGD due to gastroparesis PROCEDURE PERFORMED: EGD w/ biopsy MEDICATIONS: None and Per Anesthesia. TOPICAL ANESTHETIC: none CONSENT: The patient understands the risks and benefits of the procedure and understands that these risks include, but are not limited to: sedation, allergic reaction, infection, perforation and/or bleeding. Alternative means of evaluation and treatment include, among others: physical exam, x-rays, and/or surgical intervention. The patient elects to proceed with this endoscopic procedure. medical equipment was checked for proper function. Hand hygiene and appropriate measures for infection prevention was taken. After the risks, benefits and alternatives of the procedure were thoroughly explained, Informed consent was verified, confirmed and timeout was successfully executed by the treatment team. The patient was anesthetized with topical anesthesia and the EC-[id number] (Pedi C) endoscope was introduced through the mouth and advanced to the second portion of the duodenum. Retroflexed views revealed a hiatal hernia The gastroscope was then slowly withdrawn and removed. Kkrisnaa-scwbet-oalnyn gastritis antrum-biopsy 50 cc of gastric juice-suctioned esophagitis distal esophagus-biopsy. ADVERSE EVENTS: There were no complications. IMPRESSIONS: 1. Euidlilo-oyhlnj-tvaeqm gastritis antrum-biopsy 50 cc of gastric juice-suctioned esophagitis distal esophagus-biopsy 2. Retroflexed views revealed a hiatal hernia RECOMMENDATIONS: 1. Await biopsy results. Biopsy results will not be ready for 7-10 days. If you don't hear from us in two weeks, call our office for biopsy results. 2. Anti-reflux regimen 3. Continue PPI 4. Mrcp clear liquid diet, advance as tolerated PATIENT CONDITION: stable DISPOSITION: Inpatient REPEAT EXAM: EGD pending biopsy results Jeannette Cowan MD eSigned: Jeannette Cowan MD 04/27/2017 7:19 AM cc: PATIENT NAME: Raul Hayes MR#: [id number]
[2017-04-27] MEDS ORDERED: MEPERIDINE HCL 50 MG/ML VIAL ONE (07:28)
[2017-04-27] MEDS: ONDANSETRON HCL 4 MG/2 ML VIAL IVP PRN (07:33)
[2017-04-27 07:36] LABS: BICARBONATE 28.5 MEQ/L (21.0-32.0); MAGNESIUM 2.3 MG/DL (1.5-2.5)
[2017-04-27] MEDS: SODIUM CHLORIDE 0.9% FLUSH 10 ML FLUSH IV FLUSH SCH (07:57)
[2017-04-27] MEDS: SODIUM CHLOR 0.9% 1000 ML INJ 1,000 ML IV SCH ×2 (08:45→15:56)
[2017-04-27] MEDS ORDERED: PROPOFOL 200 MG/20 ML AMP IV ONE (12:00)
[2017-04-27 12:13] VITALS: BP 143/104; PULSE 95; RESP 19; TEMP 97.3; O2SAT 10
[2017-04-27] MEDS: DRONABINOL 5 MG CAP PO SCH ×2 (12:15→15:55)
--- NOTE | 2017-04-27 12:34 | RADRPT ---
EXAM DATE/TIME: 04/27/2017 11:03 [facility] COMPARISON: CT ABDOMEN & PELVIS W/O CONTRAST, April 08, 2016, 2:25. INDICATIONS : Pancreatitis. MEDICAL HISTORY : Hypertension. SURGICAL HISTORY : Orthopaedic. ENCOUNTER: Initial ACUITY: 1 day PAIN SCORE: 5/10 LOCATION: Abdomen TECHNIQUE: Multiplanar, multisequence magnetic resonance imaging of the abdomen was performed. High-resolution 3D dataset was utilized to reconstruct maximum-intensity projection (MIP) images. FINDINGS: INTRAHEPATIC BILE DUCTS: Within normal limits. No significant anatomical variant is present. EXTRAHEPATIC BILE DUCTS: The common bile duct measures 4 mm No stone or filling defect is identified. GALLBLADDER: No stones, wall thickening, or pericholecystic fluid. LIVER: Normal size and signal intensity. No concerning liver lesion is identified on this non-contrast exam. PANCREAS: The main pancreatic duct is normal in size. There is no significant anatomical variant. Signal inte nsity is within normal limits. No mass is visualized on this non-contrast exam. OTHER: The remaining visualized structures demonstrate no acute abnormality on this non-contrast exam. CONCLUSION: Normal examination. Cristobal Bloom Jr., MD on April 27, 2017 at 12:25 Board Certified Radiologist. This report was verified electronically.
[2017-04-27] MEDS ORDERED: DRON5CAP PO (17:44)
[2017-04-27] MEDS ORDERED: OMEP20TA PO (17:44)
--- NOTE | 2017-04-30 15:20 | HHI.PR ---
Subjective Remarks Patient seen on the morning of 04/27. Since he is feeling well. Tolerated procedure. Later nurse reports that patient tolerated meal with no issues. Patient discharged home. Follow-up with gastroenterology. Objective Result Diagram: 04/27/1751404/27/1715 Objective Remarks GENERAL: Patient lying in bed. awake, Alert and oriented 3. SKIN: Warm and dry. HEAD: Normocephalic. EYES: No scleral icterus. No injection or drainage. NECK: Supple, trachea midline. No JVD. CARDIOVASCULAR: Regular rate and rhythm without murmurs, gallops, or rubs. RESPIRATORY: Breath sounds equal bilaterally. No accessory muscle use. GASTROINTESTINAL: Abdomen soft. Tender to moderate palpation in the epigastrium. MUSCULOSKELETAL: No cyanosis, or edema. BACK: Nontender without obvious deformity. No CVA tenderness. A/P Assessment and Plan ==04/27/17========= -Hypokalemia. Resolved after replacement. 4.0. -Reviewed abdominal film and ultrasound, both negative. -Suspected marijuana hyperemesis syndrome. Start on several days of Marinol. -Status post EGD with hiatal hernia, esophagitis and gastritis. Discharge home with PPI. Instructed patient on correct timing of PPI. //Recurrent pancreatitis. //Nausea and vomiting. //Suspected marijuana hyperemesis syndrome. //History of gastroparesis -Lipase in the 400s. Possibly from vomiting. -CT abdomen last month but no acute pancreatic findings. Lipase could be elevated secondary to nausea and vomiting. There is a possibility of marijuana hyperemesis syndrome. Patient denies marijuana use, however positive on tox screen. -Abdominal film reviewed and neg. US reviewed and negative. -We'll try Marinol for nausea. -Follow up GI recommendations. //Marijuana use. -Patient says he will try to stop smoking Discharge Planning Discharge home. Follow-up gastroenterology. Discontinue marijuana. Ricardo Raines MD Apr 30, 2017 15:20
--- NOTE | 2017-04-30 15:25 | HHI.DS ---
Discharge Summary Admission Date Apr 24, 2017 at 21:07 Discharge Date: Apr 27, 2017 Admitting Diagnosis intractable abdominal pain/vomiting (1) Cannabinoid hyperemesis syndrome ICD Code: F12.988 - Cannabis use, unspecified with other cannabis-induced disorder (2) Abdominal pain ICD Code: R10.9 - Abdominal pain Status: Acute (3) Nausea & vomiting ICD Code: R11.2 - Nausea & vomiting Status: Acute Procedures Upper endoscopy Brief History - From Admission 26-year-old male with a history of recurrent pancreatitis, who presents with a 2 month history of worsening twisting epigastric pain radiating to back, with nausea and vomiting over the last 2 days, unable to keep anything down. Patient reports weight loss of 40 pounds over the past 2 months secondary to nausea, pain, decreased appetite. He denies any fevers, constipation, diarrhea. CBC/BMP: 04/27/17 0515 04/27/17 0515 Imaging Last Impressions Cholangiopancreatography MRI 04/27/17 0000 Signed Impressions: Service Date/Time: Thursday, April 27, 2017 11:03 - CONCLUSION: Normal examination. Cristobal Bloom Jr., MD Liver Ultrasound 04/26/17 0000 Signed Impressions: Service Date/Time: April 08:10 - CONCLUSION: 1. Examination is within normal limits. 2. Please note that the pancreas is not adequately visualized due to bowel gas. Good Trujillo MD Abdomen X-Ray 04/25/17 0000 Signed Impressions: Service Date/Time: Tuesday, April 25, 2017 22:08 - CONCLUSION: 1. No acute findings. Latrell Parada MD Hospital Course Patient admitted with intractable nausea and vomiting. Lipase in the 400s. Liver ultrasound unremarkable. Abdominal x-ray with no acute findings. Improved somewhat with antibiotics. Gastroenterology was consulted. Patient underwent EGD which showed hiatal hernia, esophagitis, gastritis. MRCP performed and unremarkable. Patient's nausea did improve somewhat with Marinol. He does smoke marijuana at home. He will discontinue all use. He was placed on PPI, and instructed on correct timing of this medication, 30 minutes before meals. Follow-up with gastroenterology as outpatient. For problem-based summary for most recent progress note, please see below. ==04/27/17========= -Hypokalemia. Resolved after replacement. 4.0. -Reviewed abdominal film and ultrasound, both negative. -Suspected marijuana hyperemesis syndrome. Start on several days of Marinol. -Status post EGD with hiatal hernia, esophagitis and gastritis. Discharge home with PPI. Instructed patient on correct timing of PPI. //Recurrent pancreatitis. //Nausea and vomiting. //Suspected marijuana hyperemesis syndrome. //History of gastroparesis -Lipase in the 400s. Possibly from vomiting. -CT abdomen last month but no acute pancreatic findings. Lipase could be elevated secondary to nausea and vomiting. There is a possibility of marijuana hyperemesis syndrome. Patient denies marijuana use, however positive on tox screen. -Abdominal film reviewed and neg. US reviewed and negative. -We'll try Marinol for nausea. -Follow up GI recommendations. //Marijuana use. -Patient says he will try to stop smoking Discharge Planning Discharge home. Follow-up gastroenterology. Discontinue marijuana. Pt Condition on Discharge: Good Discharge Disposition: Discharge Home Discharge Time: > 30 minutes Discharge Instructions DIET: Follow Instructions for: As Tolerated, No Restrictions Activities you can perform: Regular-No Restrictions Follow up Referrals: Gastroenterology - 2 Weeks with Jeannette Cowan MD PCP Follow-up - 1 Week New Medications: Omeprazole (Omeprazole) 20 Mg Tab 20 MG PO BID for Reflux, #30 TAB 0 Refills Dronabinol (Dronabinol) 5 Mg Cap 5 MG PO BID@11,16 for Nausea for 3 Days, #6 CAP Ricardo Raines MD Apr 30, 2017 15:25
== END 2017-04-27 18:19 | disposition home or self-care (01) ==
LOC: PHED 18:14 → PHEDA 21:07 → PH3B 23:19
PROVIDERS: ADMIT Internal Medicine; ATTEND Internal Medicine
DX: K86.1 Other chronic pancreatitis (principal); T40.7X5A Adverse effect of cannabis (derivatives), initial encounter; E87.6 Hypokalemia; I10 Essential (primary) hypertension; J45.909 Unspecified asthma, uncomplicated; F12.90 Cannabis use, unspecified, uncomplicated; K44.9 Diaphragmatic hernia without obstruction or gangrene; R63.4 Abnormal weight loss; K20.9 Esophagitis, unspecified; K29.70 Gastritis, unspecified, without bleeding; K31.84 Gastroparesis; F17.200 Nicotine dependence, unspecified, uncomplicated
CPT/HCPCS: 00740; 43239; 74000; 74181; 76377; 76705; 80048; 80053; 80069; 80307; 83690; 83735; 85025; 88305; 88312; 96361; 96374; 96375; 96376; 99285; G0378; J1170; J1200; J2175; J2405; J2765; J7030

== ENCOUNTER 2017-05-24 13:33 | Observation (INO) | payer SELFPAY ==
[~2017-05-24] VITALS: Ht 180.3 cm; Wt 103.5 kg
[~2017-05-24 13:33] MED LIST changes: +DRON5CAP PO; +OMEP20TA PO; -PROPOFOL 200 MG/20 ML AMP IV ONE
[2017-05-24 13:35] VITALS: BP 159/101; PULSE 72; RESP 15; TEMP 98.2; O2SAT 97
--- NOTE | 2017-05-24 13:45 | PD ---
Physical Exam Date Seen by Provider: May 24, 2017 Time Seen by Provider: 13:43 Narrative 27-year-old male patient with history of chronic pancreatitis Gastroparesis and gastritis, presents to emergency department with ongoing nausea, vomiting, and weakness. Patient was told to come here by his optical brightener maker helper. Patient is a patient of Miguel Banda. Saw his gastrologist yesterday, and symptoms of persistent since yesterday. Vital signs are stable. Patient is awaiting bed placement. Data Data Last Documented VS Vital Signs Date Time Temp Pulse Resp B/P (MAP) Pulse Ox O2 Delivery O2 Flow Rate FiO2 05/24/17 13:35 98.2 72 15 159/101 (120) 97 MDM Medical Record Reviewed: Yes Supervised Visit with MAGO: Yes Condition: Stable Дмитрий Dee May 24, 2017 13:45
[2017-05-24] MEDS ORDERED: SODIUM CHLOR 0.9% 1000 ML INJ 1,000 ML IV SCH ×2 (14:05→15:00)
--- NOTE | 2017-05-24 14:08 | PD ---
HPI Chief Complaint: GI Complaint Time Seen by Provider: 14:00 Travel History International Travel<30 days: No Contact w/Intl Traveler<30days: No Traveled to known affect area: No History of Present Illness HPI This is a 27-year-old male with reported history of gastroparesis, recurrent pancreatitis, gastroesophagitis, presents for evaluation of recurrent abdominal pain. He reports generalized abdominal crampy pain which is worse when vomiting. He reports multiple episodes of emesis on a daily basis. She is prescribed Zofran but he reports that he has difficulty keeping it down. It appears that this patient just began seeing residential door installer Dr. Chance with his first visit yesterday. He called his office today and was referred to the emergency room. He reports that he has similar pain to this approximately 2 weeks out of every month. He denies dysuria, flank pain, fevers or chills. He has no other complaints at this time. PFSH Past Medical History ADHD: Yes Arthritis: No Asthma: Yes Autoimmune Disease: No Blood Disorders: No Anxiety: No Depression: No Heart Rhythm Problems: No Cancer: No Cardiovascular Problems: No High Cholesterol: No Chemotherapy: No Chest Pain: No Congestive Heart Failure: No COPD: No Cerebrovascular Accident: No Diabetes: No Diminished Hearing: No Endocrine: No Gastrointestinal Disorders: Yes (report hx of gastroparesis) GERD: No Genitourinary: No Hiatal Hernia: No Hypertension: Yes Immune Disorder: No Implanted Vascular Access Dvce: Yes Kidney Stones: No Musculoskeletal: No Neurologic: No Psychiatric: No Reproductive: No Respiratory: Yes (ASTHMA) Immunizations Current: Yes Migraines: No Pancreatitis: Yes (Chronic pancreatitis) Radiation Therapy: No Renal Failure: No Seizures: No Sickle Cell Disease: No Sleep Apnea: No Thyroid Disease: No Ulcer: No PNEUMOCCOCAL Vaccine (Year): 2 Past Surgical History Abdominal Surgery: No AICD: No Arteriovenous Shunt: No Body Medical Devices: SCREWS/PLATES IN RIGHT WRIST AND RIGHT KNEE Cardiac Surgery: No Ear Surgery: No Endocrine Surgery: No Eye Surgery: No Genitourinary Surgery: No Gynecologic Surgery: No Insulin Pump: No Joint Replacement: Yes (RIGHT KNEE screw AND RIGHT HAND SURGERY ) Oral Surgery: No Pacemaker: No Thoracic Surgery: No Other Surgery: Yes (HAND / KNEE SURGERY) Social History Alcohol Use: No Tobacco Use: No Substance Use: No Allergies-Medications (Allergen,Severity, Reaction): Coded Allergies: cefaclor (Unverified Allergy, Severe, UNKNOWN REACTION, 05/24/17) Reported Meds & Prescriptions Reported Meds & Active Scripts Active Omeprazole 20 Mg Tab 20 Mg PO BID Dronabinol 5 Mg Cap 5 Mg PO BID@11,16 3 Days Review of Systems Except as stated in HPI: all other systems reviewed are Neg Physical Exam Narrative GENERAL: Well-nourished male who appears uncomfortable on initial examination. SKIN: Warm and dry. HEAD: Atraumatic. Normocephalic. EYES: Pupils equal and round. No scleral icterus. No injection or drainage. ENT: No nasal bleeding or discharge. Mucous membranes pink and moist. NECK: Trachea midline. No JVD. CARDIOVASCULAR: Regular rate and rhythm. No murmur appreciated. RESPIRATORY: No accessory muscle use. Clear to auscultation. Breath sounds equal bilaterally. GASTROINTESTINAL: Abdomen soft, mild generalized tenderness without guarding. MUSCULOSKELETAL: No obvious deformities. No clubbing. No cyanosis. No edema. NEUROLOGICAL: Awake and alert. No obvious cranial nerve deficits. Motor grossly within normal limits. Normal speech. PSYCHIATRIC: Appropriate mood and affect; insight and judgment normal. Data Data Last Documented VS Vital Signs Date Time Temp Pulse Resp B/P (MAP) Pulse Ox O2 Delivery O2 Flow Rate FiO2 05/24/17 13:35 98.2 72 15 159/101 (120) 97 Orders Orders Complete Blood Count With Diff (05/24/17 13:45) Comprehensive Metabolic Panel (05/24/17 13:45) Lipase (05/24/17 13:45) Lactic Acid (05/24/17 13:45) Prothrombin Time / Inr (Pt) (05/24/17 13:45) Act Partial Throm Time (Ptt) (05/24/17 13:45) Urinalysis - C+S If Indicated (05/24/17 13:45) Electrocardiogram (05/24/17 13:45) Ondansetron Inj (Zofran Inj) (05/24/17 14:15) Sodium Chlor 0.9% 1000 Ml Inj (Ns 1000 M (05/24/17 14:05) Metoclopramide Inj (Reglan Inj) (05/24/17 14:30) Promethazine Inj (Phenergan Inj) (05/24/17 14:45) Sodium Chlor 0.9% 1000 Ml Inj (Ns 1000 M (05/24/17 15:00) Dicyclomine Inj (Bentyl Inj) (05/24/17 15:30) Admit Order (Ed Use Only) (05/24/17 15:38) Labs Laboratory Tests Test 05/24/17 14:15 White Blood Count 11.3 TH/MM3 Red Blood Count 5.33 MIL/MM3 Hemoglobin 16.2 GM/DL Hematocrit 47.5 % Mean Corpuscular Volume 89.1 FL Mean Corpuscular Hemoglobin 30.5 PG Mean Corpuscular Hemoglobin Concent 34.2 % Red Cell Distribution Width 13.1 % Platelet Count 264 TH/MM3 Mean Platelet Volume 9.1 FL Neutrophils (%) (Auto) 89.7 % Lymphocytes (%) (Auto) 8.0 % Monocytes (%) (Auto) 2.1 % Eosinophils (%) (Auto) 0.0 % Basophils (%) (Auto) 0.2 % Neutrophils # (Auto) 10.2 TH/MM3 Lymphocytes # (Auto) 0.9 TH/MM3 Monocytes # (Auto) 0.2 TH/MM3 Eosinophils # (Auto) 0.0 TH/MM3 Basophils # (Auto) 0.0 TH/MM3 CBC Comment DIFF FINAL Differential Comment Prothrombin Time 10.9 SEC Prothromb Time International Ratio 1.0 RATIO Activated Partial Thromboplast Time 23.3 SEC Blood Urea Nitrogen 13 MG/DL Creatinine 1.17 MG/DL Random Glucose 174 MG/DL Total Protein 7.8 GM/DL Albumin 4.2 GM/DL Calcium Level 8.8 MG/DL Alkaline Phosphatase 54 U/L Aspartate Amino Transf (AST/SGOT) 22 U/L Alanine Aminotransferase (ALT/SGPT) 27 U/L Total Bilirubin 0.7 MG/DL Sodium Level 140 MEQ/L Potassium Level 3.7 MEQ/L Chloride Level 107 MEQ/L Carbon Dioxide Level 25.2 MEQ/L Anion Gap 8 MEQ/L Estimat Glomerular Filtration Rate 75 ML/MIN Lactic Acid Level 2.6 mmol/L Lipase 180 U/L MDM Medical Decision Making Medical Screen Exam Complete: Yes Emergency Medical Condition: Yes Medical Record Reviewed: Yes Differential Diagnosis Gastroparesis, biliary colic, cannabinoid hyperemesis syndrome, pancreatitis, obstruction Narrative Course 27-year-old male presents for evaluation of nausea, vomiting, generalized abdominal pain, recurrent, for several years, currently acute exacerbation for one day. His residential door installer will be paged. Plan is for basic lab work, IV fluids, Zofran. I spoke to Dr. Chance he reports that he has not seen this patient in the past but he recommends trying Reglan and Phenergan given his history and symptoms. Upon reexamination after the patient has received antiemetic medication he continues to feel nauseous reports that he recently vomited. His lactic acid is elevated, likely secondary to vomiting. His lab work is unremarkable otherwise. Upon speaking to the mother again she called the GI office and reports that the patient actually saw Dr. Calderon yesterday in the office and not Dr. Chance as she originally thought. At this point in time, given the patient's persistent symptoms, he will be admitted for observation for intractable nausea and vomiting. Diagnosis Primary Impression: Nausea & vomiting Qualified Codes: R11.2 - Nausea with vomiting, unspecified Admitting Information Admitting Physician Requests: Observation Condition: Stable Duarte Beltran May 24, 2017 14:08
[2017-05-24] MEDS ORDERED: ONDANSETRON HCL 4 MG/2 ML VIAL IVP ONE (14:15)
[2017-05-24] MEDS ORDERED: METOCLOPRAMIDE HCL 10 MG/2 ML VIAL IV PUSH ONE (14:30)
[2017-05-24 14:39] LABS: AUTOMATED NEUTROPHIL # 10.2 TH/MM3 (1.8-7.7); BASOPHIL % 0.2 % (0.0-2.0); HEMATOCRIT 47.5 % (39.0-51.0); HEMO FLAGS DIFF FINAL; LYMPHOCYTE # 0.9 TH/MM3 (1.0-4.8); MEAN CELL VOLUME 89.1 FL (80.0-100.0); MEAN CORPUSCULAR HEMOGLOBIN 30.5 PG (27.0-34.0); MEAN CORPUSCULAR HGB CONC 34.2 % (32.0-36.0); MONO % 2.1 % (0.0-8.0); NEUT % 89.7 % (16.0-70.0); PLATELET COUNT 264 TH/MM3 (150-450); RED BLOOD COUNT 5.33 MIL/MM3 (4.50-5.90); RED CELL DISTRIBUTION WIDTH 13.1 % (11.6-17.2); WHITE BLOOD COUNT 11.3 TH/MM3 (4.0-11.0)
[2017-05-24] MEDS ORDERED: PROMETHAZINE INJ 25 MG/ML VIAL IM ONE (14:45)
[2017-05-24 14:53] LABS: APTT (PATIENT) 23.3 SEC (24.3-30.1); PROTHROMBIN TIME - PATIENT 10.9 SEC (9.8-11.6)
[2017-05-24 15:08] LABS: ALKALINE PHOSPHATASE 54 U/L (45-117); TOTAL BILIRUBIN ADULT 0.7 MG/DL (0.2-1.0)
[2017-05-24 15:10] LABS: ALT (GPT) 27 U/L (12-78); ANION GAP 8 MEQ/L (5-15); AST (GOT) 22 U/L (15-37); BICARBONATE 25.2 MEQ/L (21.0-32.0); BLOOD UREA NITROGEN 13 MG/DL (7-18); CHLORIDE 107 MEQ/L (98-107); GLOMERULAR FILTRATION RATE 75 ML/MIN (>89); SODIUM (NA) 140 MEQ/L (136-145)
[2017-05-24 15:11] LABS: POTASSIUM 3.7 MEQ/L (3.5-5.1)
[2017-05-24] MEDS ORDERED: DICYCLOMINE HCL 20 MG/2 ML VIAL IM ONE (15:30)
[2017-05-24] MEDS ORDERED: RANI300T PO (16:11)
[2017-05-24] MEDS ORDERED: PANT40TA3 PO (16:11)
[2017-05-24] MEDS ORDERED: SODIUM CHLORIDE 0.9% FLUSH 10 ML FLUSH IV FLUSH PRN (17:00)
[2017-05-24] MEDS ORDERED: ACETAMINOPHEN 325 MG TAB PO PRN ×2 (17:00)
[2017-05-24] MEDS ORDERED: NALOXONE HCL 0.4 MG/ML AMP IV PUSH PRN (17:00)
[2017-05-24] MEDS ORDERED: MORPHINE SULFATE 4 MG/ML INJ IV PUSH PRN (17:00)
[2017-05-24] MEDS ORDERED: HYDROmorphone HCL PF 1 MG/ML VIAL IV PUSH PRN (17:00)
[2017-05-24 17:06] VITALS: BP 140/95; PULSE 64; RESP 17; O2SAT 98
--- NOTE | 2017-05-24 17:15 | HHI.HP ---
[facility] Primary Care Physician No Primary Care Physician Admission Diagnosis intractable nausea and vomiting Diagnoses: Chief Complaint: Nausea/ vomiting Travel History International Travel<30 Days: No Contact w/Intl Traveler <30 Da: No Traveled to Known Affected Are: No History of Present Illness The patient is a 27-year-old male with a past medical history of gastroparesis, pancreatitis and gastritis who is presenting to the hospital with nausea and vomiting as well as abdominal pain. The patient went to his fire safety manager yesterday for a one-month follow-up on his recent hospitalization. He was hospitalized last month for the same thing. The patient was feeling okay at his fire safety manager's visit and was started on ranitidine and pantoprazole. The patient developed nausea and vomiting this morning. He is clearly very symptomatic at this time and is not too helpful with the history. His mother was at the bedside and she did help provide details. Apparently the patient develops nausea, vomiting and abdominal pain about once a month. This cycle has been ongoing for the past 17 years. He has followed up with multiple gastroenterologists. The patient recently had an endoscopy performed. The patient has been unable to eat since yesterday. He continues to dry heave and cough up small amounts of spit during the examination. He complains of significant epigastric pain. It is located in the band across his upper abdomen. Per the patient's mother the patient lost about 50 pounds over the past 4 months. Review of Systems ROS Limitations: Clinical Condition, Poor Historian Except as stated in HPI: all other systems reviewed are Neg Past Family Social History Past Medical History Asthma ADHD Gastroparesis Pancreatitis Gastritis Hypertension Past Surgical History Right wrist and right knee surgery Allergies: Coded Allergies: cefaclor (Unverified Allergy, Severe, UNKNOWN REACTION, 05/24/17) Active Ordered Medications Current Medications Medications (Trade) Dose Ordered Sig/Anthony Route Start Time Stop Time Status Last Admin (Protonix Inj) 40 mg Q12H IV PUSH 05/24/17 17:00 UNV Sodium Chloride 1,000 ml @ 100 mls/hr Q10H IV 05/24/17 16:59 UNV (NS Flush) 2 ml UNSCH PRN IV FLUSH 05/24/17 17:00 UNV (NS Flush) 2 ml BID IV FLUSH 05/24/17 21:00 UNV (Tylenol) 650 mg Q4H PRN PO 05/24/17 17:00 UNV (Zofran Inj) 4 mg Q6H PRN IVP 05/24/17 17:00 UNV (Tylenol) 650 mg Q6H PRN PO 05/24/17 17:00 UNV (Morphine Inj) 2 mg Q4H PRN IV PUSH 05/24/17 17:00 UNV (Morphine Inj) 4 mg Q4H PRN IV PUSH 05/24/17 17:00 UNV (Dilaudid Pf Inj) 1 mg Q4H PRN IV PUSH 05/24/17 17:00 UNV (Narcan Inj) 0.4 mg UNSCH PRN IV PUSH 05/24/17 17:00 UNV (Bere-Colace) 1 tab BID PO 05/24/17 21:00 UNV Family History Asthma Pancreatitis Social History The patient smokes marijuana daily. He does not drink or use other illicit substances. Physical Exam Vital Signs Vital Signs Date Time Temp Pulse Resp B/P (MAP) Pulse Ox O2 Delivery O2 Flow Rate FiO2 05/24/17 13:35 98.2 72 15 159/101 (120) 97 Physical Exam GENERAL: The patient appears uncomfortable and is often dry heaving. SKIN: No rashes, ecchymoses or lesions. Cool and dry. HEAD: Atraumatic. Normocephalic. No temporal or scalp tenderness. EYES: Pupils equal round and reactive. Extraocular motions intact. No scleral icterus. No injection or drainage. ENT: Nose without bleeding, purulent drainage or septal hematoma. Throat without erythema, tonsillar hypertrophy or exudate. Uvula midline. Airway patent. NECK: Trachea midline. No JVD or lymphadenopathy. Supple, nontender, no meningeal signs. CARDIOVASCULAR: Regular rate and rhythm without murmurs, gallops, or rubs. RESPIRATORY: Clear to auscultation. Breath sounds equal bilaterally. No wheezes , rales, or rhonchi. GASTROINTESTINAL: Tender to palpation, the patient does not allow full examination. MUSCULOSKELETAL: Extremities without clubbing, cyanosis, or edema. No joint tenderness, effusion, or edema noted. NEUROLOGICAL: Awake and alert. Cranial nerves II through XII intact. Motor and sensory grossly within normal limits. Five out of 5 muscle strength in all muscle groups. Normal speech. PSYCH: Flattened affect. Laboratory Laboratory Tests Test 05/24/17 14:15 White Blood Count 11.3 Red Blood Count 5.33 Hemoglobin 16.2 Hematocrit 47.5 Mean Corpuscular Volume 89.1 Mean Corpuscular Hemoglobin 30.5 Mean Corpuscular Hemoglobin Concent 34.2 Red Cell Distribution Width 13.1 Platelet Count 264 Mean Platelet Volume 9.1 Neutrophils (%) (Auto) 89.7 Lymphocytes (%) (Auto) 8.0 Monocytes (%) (Auto) 2.1 Eosinophils (%) (Auto) 0.0 Basophils (%) (Auto) 0.2 Neutrophils # (Auto) 10.2 Lymphocytes # (Auto) 0.9 Monocytes # (Auto) 0.2 Eosinophils # (Auto) 0.0 Basophils # (Auto) 0.0 CBC Comment DIFF FINAL Differential Comment Prothrombin Time 10.9 Prothromb Time International Ratio 1.0 Activated Partial Thromboplast Time 23.3 Blood Urea Nitrogen 13 Creatinine 1.17 Random Glucose 174 Total Protein 7.8 Albumin 4.2 Calcium Level 8.8 Alkaline Phosphatase 54 Aspartate Amino Transf (AST/SGOT) 22 Alanine Aminotransferase (ALT/SGPT) 27 Total Bilirubin 0.7 Sodium Level 140 Potassium Level 3.7 Chloride Level 107 Carbon Dioxide Level 25.2 Anion Gap 8 Estimat Glomerular Filtration Rate 75 Lactic Acid Level 2.6 Lipase 180 Result Diagram: 05/24/17 1415 05/24/17 1415 Caprini VTE Risk Assessment Caprini VTE Risk Assessment: No/Low Risk (score <= 1) Caprini Risk Assessment Model Point Value = 1 Point Value = 2 Point Value = 3 Point Value = 5 Age 41-60 Minor surgery BMI > 25 kg/m2 Swollen legs Varicose veins or History of unexplained or recurrent spontaneous Oral contraceptives or hormone replacement Sepsis (< 1 month) Serious lung disease, including pneumonia (< 1 month) Abnormal pulmonary function Acute myocardial infarction Congestive heart failure (< 1 month) History of inflammatory bowel disease Medical patient at bed rest Age 61-74 Arthroscopic surgery Major open surgery (> 45 min) Laparoscopic surgery (> 45 min) Malignancy Confined to bed (> 72 hours) Immobilizing plaster cast Central venous access Age >= 75 History of VTE Family history of VTE Factor V Leiden Prothrombin [id number] Lupus anticoagulant Anticardiolipin antibodies Elevated serum homocysteine Heparin-induced thrombocytopenia Other congenital or acquired thrombophilia Stroke (< 1 month) Elective arthroplasty Hip, pelvis, or leg fracture Acute spinal cord injury (< 1 month) Prophylaxis Regimen Total Risk Factor Score Risk Level Prophylaxis Regimen 0-1 Low Early ambulation 2 Moderate Order ONE of the following: *Sequential Compression Device (SCD) *Heparin 5000 units SQ BID 3-4 Higher Order ONE of the following medications: *Heparin 5000 units SQ TID *Enoxaparin/Lovenox 40 mg SQ daily (WT < 150 kg, CrCl > 30 mL/min) *Enoxaparin/Lovenox 30 mg SQ daily (WT < 150 kg, CrCl > 10-29 mL/min) *Enoxaparin/Lovenox 30 mg SQ BID (WT < 150 kg, CrCl > 30 mL/min) AND/OR *Sequential Compression Device (SCD) 5 or more Highest Order ONE of the following medications: *Heparin 5000 units SQ TID (Preferred with Epidurals) *Enoxaparin/Lovenox 40 mg SQ daily (WT < 150 kg, CrCl > 30 mL/min) *Enoxaparin/Lovenox 30 mg SQ daily (WT < 150 kg, CrCl > 10-29 mL/min) *Enoxaparin/Lovenox 30 mg SQ BID (WT < 150 kg, CrCl > 30 mL/min) AND *Sequential Compression Device (SCD) Assessment and Plan Assessment and Plan Gastroparesis/ Abdominal pain The pt has a history of pancreatitis, gastritis and gastroparesis. He follows with a fire safety manager as an outpt. Has not been able to eat since the night prior to admission. LFTs and lipase unremarkable. Hospitalized for the same last month. - GI consult pending. - IV PPI BID. - IVFs. - pain meds and antiemetics as needed. Leukocytosis Likely reactive. - Follow CBC. Lactic acid elevation Likely secondary to nausea and vomiting. - Follow level in the morning with supportive care. Marijuana use Daily. Apparently the pt stopped using it for two years to see if it would help with his vomiting but he resumed it as it didn't work. - cessation instruction. Hypertension Likely secondary to acute presentation. - Treatment as above. - Vasotec as needed. Hyperglycemia Possibly stress reaction. Possibly underlying cause of gastroparesis. - Hemoglobin A1c pending. PPx: SCDs Code Status Full Discussed Condition With Pt, pt's family, Evan Wetzel DO May 24, 2017 17:15
[2017-05-24] MEDS: SODIUM CHLOR 0.9% 1000 ML INJ 1,000 ML IV SCH (17:50)
[2017-05-24] MEDS: MORPHINE SULFATE 4 MG/ML INJ IV PUSH PRN ×2 (17:51→22:14)
[2017-05-24] MEDS: PANTOPRAZOLE SODIUM 40 MG VIAL IV PUSH SCH (17:54)
[2017-05-24 18:11] LABS: BLOOD, URINE NEG (NEG); COMMENT (UR) CULT NOT INDICATED; CULTURE IF INDICATED CULT NOT INDICATED; GLUCOSE,URINE 150 mg/dL (NEG); KETONE, URINE 40 mg/dL (NEG); NITRITE,URINE NEG (NEG); PH, URINE 7.5 (5.0-8.5); URINE COLOR YELLOW (YELLW/STRAW)
[2017-05-24 18:41] VITALS: BP 137/84; PULSE 68; RESP 20; TEMP 98.5; O2SAT 98
[2017-05-24] MEDS: SODIUM CHLORIDE 0.9% FLUSH 10 ML FLUSH IV FLUSH SCH (20:13)
[2017-05-24] MEDS: ONDANSETRON HCL 4 MG/2 ML VIAL IVP PRN (20:13)
[2017-05-24] MEDS: DOCUSATE SODIUM 50 MG/SENNA 8.6 MG TAB PO SCH (20:13)
[2017-05-24 21:13] VITALS: BP 162/84; PULSE 67; RESP 18; TEMP 98.4; O2SAT 97
[2017-05-24 22:39] LABS: HEMOGLOBIN A1b 1.6 %; HEMOGLOBIN Ao 85.4 %; HEMOGLOBIN LA1C 2.7 %; HEMOGLOBIN P3 3.9 %
[2017-05-25 00:09] VITALS: BP 119/62; PULSE 70; RESP 18; TEMP 98; O2SAT 100
[2017-05-25] MEDS: SODIUM CHLOR 0.9% 1000 ML INJ 1,000 ML IV SCH ×3 (04:03→21:42)
[2017-05-25] MEDS: MORPHINE SULFATE 4 MG/ML INJ IV PUSH PRN ×5 (04:03→21:43)
[2017-05-25] MEDS: PANTOPRAZOLE SODIUM 40 MG VIAL IV PUSH SCH ×2 (04:04→16:47)
[2017-05-25 05:03] VITALS: BP 128/73; PULSE 77; RESP 18; TEMP 98.8; O2SAT 97
[2017-05-25 07:14] LABS: BASOPHIL % 0.2 % (0.0-2.0); EOSINOPHIL % 0.4 % (0.0-4.0); HEMATOCRIT 41.1 % (39.0-51.0); HEMO FLAGS DIFF FINAL; LYMPH % 22.2 % (9.0-44.0); LYMPHOCYTE # 2.6 TH/MM3 (1.0-4.8); MEAN CELL VOLUME 88.6 FL (80.0-100.0); MEAN CORPUSCULAR HEMOGLOBIN 30.3 PG (27.0-34.0); MEAN CORPUSCULAR HGB CONC 34.2 % (32.0-36.0); MONO % 9.3 % (0.0-8.0); NEUT % 67.9 % (16.0-70.0); PLATELET COUNT 228 TH/MM3 (150-450); RED BLOOD COUNT 4.64 MIL/MM3 (4.50-5.90); RED CELL DISTRIBUTION WIDTH 12.6 % (11.6-17.2); WHITE BLOOD COUNT 11.8 TH/MM3 (4.0-11.0)
[2017-05-25 07:48] LABS: ALKALINE PHOSPHATASE 43 U/L (45-117); ALT (GPT) 19 U/L (12-78); ANION GAP 6 MEQ/L (5-15); AST (GOT) 12 U/L (15-37); BICARBONATE 26.1 MEQ/L (21.0-32.0); BLOOD UREA NITROGEN 8 MG/DL (7-18); CHLORIDE 110 MEQ/L (98-107); GLOMERULAR FILTRATION RATE 95 ML/MIN (>89); POTASSIUM 3.1 MEQ/L (3.5-5.1); SODIUM (NA) 142 MEQ/L (136-145); TOTAL BILIRUBIN ADULT 0.7 MG/DL (0.2-1.0)
[2017-05-25 08:04] VITALS: BP 127/80; PULSE 67; RESP 18; TEMP 98.1; O2SAT 98
[2017-05-25] MEDS: DOCUSATE SODIUM 50 MG/SENNA 8.6 MG TAB PO SCH ×2 (08:16→20:11)
[2017-05-25] MEDS: SODIUM CHLORIDE 0.9% FLUSH 10 ML FLUSH IV FLUSH SCH ×2 (08:16→20:24)
[2017-05-25] MEDS: POTASSIUM CHLOR 20 MEQ PREMIX 100 ML IV SCH ×2 (09:31→11:30)
--- NOTE | 2017-05-25 09:40 | PD.CONS ---
HPI History of Present Illness This is a 27 year old who presented with abdominal pain, nausea, and vomiting. These are recurring symptoms for the past 2 years. He has been told in the past that he had gastroparesis and pancreatitis. Of note, he has had mildly elevated lipase in the past, but has never had evidence of pancreatitis on CT scans. Recently, he was evaluated with Liver US (04/26/17)---> Examination is within normal limits, please note that the pancreas is not adequately visualized due to bowel gas. MRCP (04/27/17)---> normal examination. He has had multiple unremarkable CT scans of abdomen and pelvis. EGD (04/27/17)---> normal duodenum, biopsy, gastritis antrum biopsy, 50 cc of gastric juice suctioned, esophagitis distal esophagus, biopsy. Retroflex views revealed a hiatal hernia. Pathology revealed duodenal mucosa without significant histologic abnormality, gastric antral mucosa without significant histologic abnormality, negative for h. pylori. He was seen in the office for follow up with [facility] on 05/23/17. He felt that likely his symptoms were related to gastroparesis vs dysfunctional GB. HIDA, GES, and EUS was recommended, but declined by patient's insurance. He was doing better at that time and his omeprazole was changed to Protonix with BID dosing and Zantac at 300mg qhs and zofran was ordered for prn usage. The patient reports that his symptoms returned yesterday morning. He describes this as a constant stabbing pain with no radiation. He also was having intractable nausea and vomiting with undigested food or bilious material, but no hematemesis. He denies any heartburn or reflux. He denies any constipation, diarrhea, blood in his stool. He denies the use of ibuprofen. He occasionally smokes marijuana and states that this seems to settle his stomach. When he was seen in the office, he reported smoking this daily. He states that when he was in the hospital the last time, he was given a medication with marijuana in it and this helped with his symptoms. He does note that taking a hot shower seems to help his symptoms. (Ivett Middleton) PFSH Past Medical History Asthma ADHD Questionable hx Gastroparesis Questionable hx Pancreatitis Esophagitis/Gastritis Hypertension Cholelithiasis without obstruction Kidney stones Splenomegaly Marijuana abuse Past Surgical History Right wrist and right knee surgery EGD (Ivett Middleton) Coded Allergies: cefaclor (Unverified Allergy, Severe, UNKNOWN REACTION, 05/24/17) Medications Allergies Coded Allergies Type Severity Reaction Last Updated Verified cefaclor Allergy Severe UNKNOWN REACTION 05/24/17 No Active Scripts Medications Dose Route/Sig Max Daily Dose Days Date Category Ranitidine (Ranitidine HCl) 300 Mg Tab 300 Mg PO HS 05/24/17 Reported Pantoprazole (Pantoprazole Sodium) 40 Mg Tab 40 Mg PO DAILY 05/24/17 Reported Dronabinol 5 Mg Cap 5 Mg PO BID@11,16 3 04/27/17 Rx Family History Asthma Pancreatitis Social History The patient reports that he smokes marijuana occasionally. He recently told another provider that he did this daily (2-4 joints). He does not drink or use other illicit substances. (Ivett Middleton) Review of Systems Constitutional: COMPLAINS OF: Diaphoretic episodes, DENIES: Fever, Weight loss , Chills Respiratory: DENIES: Cough Cardiovascular: DENIES: Chest pain Gastrointestinal: COMPLAINS OF: Abdominal pain, Nausea, Vomiting, DENIES: Black stools, Bloody stools, Constipation, Diarrhea, Swelling of Abdomen, Heartburn Integumentary: DENIES: Abnormal pigmentation Hematologic/lymphatic: DENIES: Bruising Neurologic: DENIES: Headache Psychiatric: DENIES: Confusion (Ivett Middleton) GI Exam Vitals I&O Vital Signs Date Time Temp Pulse Resp B/P (MAP) Pulse Ox O2 Delivery O2 Flow Rate FiO2 05/25/17 08:04 98.1 67 18 127/80 (96) 98 05/25/17 05:03 98.8 77 18 128/73 (91) 97 05/25/17 00:09 98.0 70 18 119/62 (81) 100 05/24/17 21:13 98.4 67 18 162/84 (110) 97 05/24/17 18:41 98.5 68 20 137/84 (101) 98 05/24/17 17:53 05/24/17 17:06 64 17 140/95 (110) 98 Room Air 05/24/17 13:35 98.2 72 15 159/101 (120) 97 I/O 9/21/17 905/24/17 05/25/17 05/25/17 05/25/17 07:00 15:00 23:00 07:00 15:00 23:00 Intake Total 1000 ml 1000 ml Balance 1000 ml 1000 ml Intake IV Total 1000 ml 1000 ml Laboratory Test 05/24/17 14:15 05/24/17 16:51 05/25/17 06:55 White Blood Count 11.3 TH/MM3 11.8 TH/MM3 Red Blood Count 5.33 MIL/MM3 4.64 MIL/MM3 Hemoglobin 16.2 GM/DL 14.0 GM/DL Hematocrit 47.5 % 41.1 % Mean Corpuscular Volume 89.1 FL 88.6 FL Mean Corpuscular Hemoglobin 30.5 PG 30.3 PG Mean Corpuscular Hemoglobin Concent 34.2 % 34.2 % Red Cell Distribution Width 13.1 % 12.6 % Platelet Count 264 TH/MM3 228 TH/MM3 Mean Platelet Volume 9.1 FL 8.4 FL Neutrophils (%) (Auto) 89.7 % 67.9 % Lymphocytes (%) (Auto) 8.0 % 22.2 % Monocytes (%) (Auto) 2.1 % 9.3 % Eosinophils (%) (Auto) 0.0 % 0.4 % Basophils (%) (Auto) 0.2 % 0.2 % Neutrophils # (Auto) 10.2 TH/MM3 8.0 TH/MM3 Lymphocytes # (Auto) 0.9 TH/MM3 2.6 TH/MM3 Monocytes # (Auto) 0.2 TH/MM3 1.1 TH/MM3 Eosinophils # (Auto) 0.0 TH/MM3 0.0 TH/MM3 Basophils # (Auto) 0.0 TH/MM3 0.0 TH/MM3 CBC Comment DIFF FINAL DIFF FINAL Differential Comment Prothrombin Time 10.9 SEC Prothromb Time International Ratio 1.0 RATIO Activated Partial Thromboplast Time 23.3 SEC Blood Urea Nitrogen 13 MG/DL 8 MG/DL Creatinine 1.17 MG/DL 0.96 MG/DL Random Glucose 174 MG/DL 91 MG/DL Total Protein 7.8 GM/DL 6.0 GM/DL Albumin 4.2 GM/DL 3.3 GM/DL Calcium Level 8.8 MG/DL 8.1 MG/DL Alkaline Phosphatase 54 U/L 43 U/L Aspartate Amino Transf (AST/SGOT) 22 U/L 12 U/L Alanine Aminotransferase (ALT/SGPT) 27 U/L 19 U/L Total Bilirubin 0.7 MG/DL 0.7 MG/DL Sodium Level 140 MEQ/L 142 MEQ/L Potassium Level 3.7 MEQ/L 3.1 MEQ/L Chloride Level 107 MEQ/L 110 MEQ/L Carbon Dioxide Level 25.2 MEQ/L 26.1 MEQ/L Anion Gap 8 MEQ/L 6 MEQ/L Estimat Glomerular Filtration Rate 75 ML/MIN 95 ML/MIN Hemoglobin A1c 4.9 % Lactic Acid Level 2.6 mmol/L 1.4 mmol/L Lipase 180 U/L Urine Color YELLOW Urine Turbidity CLEAR Urine pH 7.5 Urine Specific [place] 1.022 Urine Protein TRACE mg/dL Urine Glucose (UA) 150 mg/dL Urine Ketones 40 mg/dL Urine Occult Blood NEG Urine Nitrite NEG Urine Bilirubin NEG Urine Urobilinogen LESS THAN 2.0 MG/DL Urine Leukocyte Esterase NEG Urine RBC 1 /hpf Urine WBC 2 /hpf Microscopic Urinalysis Comment CULT NOT INDICATED Physical Examination HEENT: Normocephalic; atraumatic; no jaundice. CHEST: CTA CARDIAC: RRR ABDOMEN: Soft, nondistended, nontender; no hepatosplenomegaly; bowel sounds are present in all four quadrants. EXTREMITIES: No clubbing, cyanosis, or edema. SKIN: Normal; no rash; no jaundice. WOOD BORER: No focal deficits; alert and oriented times three. (Ivett Middleton) Assessment and Plan Plan ASSESSMENT: - Recurrent Epigastric pain with n/v. Pt reports that he has been having recurrent symptoms x 2 years and has been told in the past that he had gastroparesis and pancreatitis. He has had mildly elevated lipases in the past, but has had multiple CT scans without evidence for definite pancreatitis. Most recently, he was evaluated with US (04/26/17) ---> Examination is within normal limits, please note that the pancreas is not adequately visualized due to bowel gas. MRCP (04/27/17)---> normal examination. He has had multiple unremarkable CT scans of abdomen and pelvis. EGD (04/27/17)---> normal duodenum, biopsy, gastritis antrum biopsy, 50 cc of gastric juice suctioned, esophagitis distal esophagus, biopsy. Retroflex views revealed a hiatal hernia. Pathology revealed duodenal mucosa without significant histologic abnormality, gastric antral mucosa without significant histologic abnormality, negative for h. pylori. Office visit with Dr. Sparks on 05/23/17---> felt that likely his symptoms were related to gastroparesis vs dysfunctional GB. HIDA, GES, and EUS was recommended, but declined by patient's insurance. At that time, he was doing better and his omeprazole was changed to Protonix with BID dosing and Zantac at 300mg qhs and zofran was ordered for prn usage. This episode began yesterday with constant stabbing pain in epigastric area, intractable n/v. States marijuana helps with his nausea and hot showers help with his pain. He tells me he only occasionally smokes marijuana, but told another provider he takes this 2-3x a day. NPO. PPI - Leukocytosis, mild. WBC 11.8. Afebrile. - Hypokalemia. Per attending. - Marijuana abuse. Recommend complete cessation, feel that this could be contributing to his symptoms. PLAN: - Clear liquids, advance as tolerated - Cont. PPI - Previous workup declined by insurance. - Okay to d/c home when tolerating diet. - FU LISA 2 weeks - Feel that his symptoms are most likely related to his marijuana use ( cannabinoid hyperemesis syndrome) and recommend that he have complete cessation to see if this this helps his symptoms. - Pt seen and examined by Dr. Chance and myself and this note is written on his behalf ADDENDUM: 1700. Nurse reports patient is tolerating clear liquids and requesting that his diet be advanced. Will start regular diet. (Ivett Middleton) Physician Comments patient seen and examined agree with above patient tolerated his diner if all is stable may DC home tomorrow with Phenergan suppositories probably pain nausea and vomiting related to marijuana use (Terrell Chance MD) Ivett Middleton May 25, 2017 09:40 Terrell Chance MD May 25, 2017 20:12
--- NOTE | 2017-05-25 10:16 | HHI.PR ---
Subjective Remarks The patient said that his pain was better at a 6 out of 10. He said he has not thrown up since last night. He said he was able to have a popsicle this morning. No other acute complaints. Discussed with nursing at the bedside. Objective Vitals Vital Signs Date Time Temp Pulse Resp B/P (MAP) Pulse Ox O2 Delivery O2 Flow Rate FiO2 05/25/17 08:04 98.1 67 18 127/80 (96) 98 05/25/17 05:03 98.8 77 18 128/73 (91) 97 05/25/17 00:09 98.0 70 18 119/62 (81) 100 05/24/17 21:13 98.4 67 18 162/84 (110) 97 05/24/17 18:41 98.5 68 20 137/84 (101) 98 05/24/17 17:53 05/24/17 17:06 64 17 140/95 (110) 98 Room Air 05/24/17 13:35 98.2 72 15 159/101 (120) 97 I/O 05/24/17 05/24/17 05/24/17 05/25/17 05/25/17 05/25/17 07:00 15:00 23:00 07:00 15:00 23:00 Intake Total 1000 ml 1000 ml Balance 1000 ml 1000 ml Intake IV Total 1000 ml 1000 ml Result Diagram: 05/25/1765405/25/17654 Objective Remarks GENERAL: Resting comfortably in bed. SKIN: No rashes, ecchymoses or lesions. Cool and dry. HEAD: Atraumatic. Normocephalic. No temporal or scalp tenderness. EYES: Pupils equal round and reactive. Extraocular motions intact. No scleral icterus. No injection or drainage. ENT: Nose without bleeding, purulent drainage or septal hematoma. Throat without erythema, tonsillar hypertrophy or exudate. Uvula midline. Airway patent. NECK: Trachea midline. No JVD or lymphadenopathy. Supple, nontender, no meningeal signs. CARDIOVASCULAR: Regular rate and rhythm without murmurs, gallops, or rubs. RESPIRATORY: Clear to auscultation. Breath sounds equal bilaterally. No wheezes , rales, or rhonchi. GASTROINTESTINAL: Mildly tender in the epigastric area. MUSCULOSKELETAL: Extremities without clubbing, cyanosis, or edema. No joint tenderness, effusion, or edema noted. NEUROLOGICAL: Awake and alert. Cranial nerves II through XII intact. Motor and sensory grossly within normal limits. Five out of 5 muscle strength in all muscle groups. Normal speech. PSYCH: Slightly flattened affect. Medications and IVs Current Medications Medications (Trade) Dose Ordered Sig/Anthony Route Start Time Stop Time Status Last Admin (Protonix Inj) 40 mg Q12H IV PUSH 05/24/17 17:00 05/25/17 04:04 Sodium Chloride 1,000 ml @ 100 mls/hr Q10H IV 05/24/17 16:59 05/25/17 04:03 (NS Flush) 2 ml UNSCH PRN IV FLUSH 05/24/17 17:00 (NS Flush) 2 ml BID IV FLUSH 05/24/17 21:00 05/24/17 20:13 (Tylenol) 650 mg Q4H PRN PO 05/24/17 17:00 (Zofran Inj) 4 mg Q6H PRN IVP 05/24/17 17:00 05/24/17 20:13 (Tylenol) 650 mg Q6H PRN PO 05/24/17 17:00 (Morphine Inj) 2 mg Q4H PRN IV PUSH 05/24/17 17:00 (Morphine Inj) 4 mg Q4H PRN IV PUSH 05/24/17 17:00 05/25/17 08:21 (Dilaudid Pf Inj) 1 mg Q4H PRN IV PUSH 05/24/17 17:00 (Narcan Inj) 0.4 mg UNSCH PRN IV PUSH 05/24/17 17:00 (Bere-Colace) 1 tab BID PO 05/24/17 21:00 Potassium Chloride 100 ml @ 50 mls/hr Q2H IV 05/25/17 08:45 05/25/17 12:44 05/25/17 09:31 A/P Assessment and Plan Gastroparesis/ Abdominal pain The pt has a history of pancreatitis, gastritis and gastroparesis. He follows with a lap cutter truer operator as an outpt. Has not been able to eat since the night prior to admission. LFTs and lipase unremarkable. Hospitalized for the same last month. - GI consult pending. - IV PPI BID. - IVFs. - pain meds and antiemetics as needed. Hypokalemia Secondary to nausea and vomiting. - Replete with IV potassium and monitor. Leukocytosis Likely reactive. - Follow CBC. Marijuana use Daily. Apparently the pt stopped using it for two years to see if it would help with his vomiting but he resumed it as it didn't work. - cessation instruction. Hypertension Likely secondary to acute presentation. - Seems resolved. - Vasotec as needed. Hyperglycemia Hemoglobin A1c 4.9%. - Stress reaction. PPx: SCDs Discharge Planning Awaiting GI evaluation Evan Haddad DO May 25, 2017 10:16
[2017-05-25 11:05] VITALS: BP 122/80; PULSE 66; RESP 18; TEMP 97.9; O2SAT 96
[2017-05-25 15:55] VITALS: BP 130/86; PULSE 61; RESP 18; TEMP 98.5; O2SAT 97
--- NOTE | 2017-05-25 16:51 | EKG ---
Date Performed: 05/24/2017 Time Performed: 16:19:52 PTAGE: 27 years EKG: Sinus rhythm WITH SINUS ARRHYTHMIA NORMAL ECG Since PREVIOUS TRACING , no significant change noted PREVIOUS TRACIN01/21/2013 12.21 DOCTOR: Gabbie Jackson Interpretating Date/Time 05/25/2017 16:49:31
[2017-05-25 19:32] VITALS: BP 136/89; PULSE 59; RESP 18; TEMP 98.3; O2SAT 97
[2017-05-25] MEDS: ONDANSETRON HCL 4 MG/2 ML VIAL IVP PRN (21:42)
[2017-05-26 00:28] VITALS: BP 135/83; PULSE 66; RESP 18; TEMP 98.2; O2SAT 96
[2017-05-26] MEDS: MORPHINE SULFATE 4 MG/ML INJ IV PUSH PRN ×2 (02:37→07:28)
[2017-05-26 04:18] VITALS: BP 132/81; PULSE 59; RESP 18; TEMP 98.1; O2SAT 97
[2017-05-26] MEDS: ONDANSETRON HCL 4 MG/2 ML VIAL IVP PRN (05:21)
[2017-05-26] MEDS: PANTOPRAZOLE SODIUM 40 MG VIAL IV PUSH SCH (05:21)
[2017-05-26] MEDS: SODIUM CHLOR 0.9% 1000 ML INJ 1,000 ML IV SCH (07:27)
[2017-05-26 07:47] VITALS: BP 132/96; PULSE 48; RESP 18; O2SAT 99
[2017-05-26 08:00] VITALS: TEMP 98
[2017-05-26 08:19] LABS: HEMATOCRIT 44.4 % (39.0-51.0); MEAN CELL VOLUME 89.6 FL (80.0-100.0); MEAN CORPUSCULAR HGB CONC 33.4 % (32.0-36.0); PLATELET COUNT 221 TH/MM3 (150-450); RED BLOOD COUNT 4.96 MIL/MM3 (4.50-5.90); RED CELL DISTRIBUTION WIDTH 12.9 % (11.6-17.2); REVIEW FLAG FINAL; WHITE BLOOD COUNT 6.5 TH/MM3 (4.0-11.0)
[2017-05-26 08:44] LABS: BICARBONATE 29.6 MEQ/L (21.0-32.0); POTASSIUM 3.7 MEQ/L (3.5-5.1)
[2017-05-26] MEDS: DOCUSATE SODIUM 50 MG/SENNA 8.6 MG TAB PO SCH (09:00)
[2017-05-26] MEDS: SODIUM CHLORIDE 0.9% FLUSH 10 ML FLUSH IV FLUSH SCH (09:00)
[2017-05-26] MEDS ORDERED: SUCR1S PO (09:58)
--- NOTE | 2017-05-26 09:59 | HHI.DCPOC ---
Discharge Care Plan Diagnosis: (1) Nausea & vomiting (2) Cannabinoid hyperemesis syndrome (3) Abdominal pain Goals to Promote Your Health * To prevent worsening of your condition and complications * To maintain your health at the optimal level Directions to Meet Your Goals Take your medications as prescribed Follow your dietary instruction Follow activity as directed Keep your appointments as scheduled Take your immunizations and boosters as scheduled If your symptoms worsen call your PCP, if no PCP go to Urgent Care Center or Emergency Room Smoking is Dangerous to Your Health. Avoid second hand smoke Call the 24-hour hour crisis hotline for domestic abuse at Evan Haddad DO May 26, 2017 09:59
--- NOTE | 2017-05-26 10:03 | HHI.PR ---
Subjective Remarks The patient was resting comfortably in bed. He said he was tolerating a diet. He said his pain was controlled. He requested something to help coat his stomach. He would like to go home today. Discussed with nursing. Objective Vitals Vital Signs Date Time Temp Pulse Resp B/P (MAP) Pulse Ox O2 Delivery O2 Flow Rate FiO2 05/26/17 08:00 98.0 05/26/17 07:47 48 18 132/96 (108) 99 05/26/17 04:18 98.1 59 18 132/81 (98) 97 05/26/17 00:28 98.2 66 18 135/83 (100) 96 05/25/17 19:32 98.3 59 18 136/89 (105) 97 05/25/17 16:52 16 05/25/17 15:55 98.5 61 18 130/86 (101) 97 05/25/17 11:05 97.9 66 18 122/80 (94) 96 I/O 05/25/17 05/25/17 05/25/17 05/26/17 05/26/17 05/26/17 07:00 15:00 23:00 07:00 15:00 23:00 Output Total 2000 ml Balance -2000 ml Output Urine Total 2000 ml Result Diagram: 05/26/1737 05/26/17736 Objective Remarks GENERAL: Resting comfortably in bed. SKIN: No rashes, ecchymoses or lesions. Cool and dry. HEAD: Atraumatic. Normocephalic. No temporal or scalp tenderness. EYES: Pupils equal round and reactive. Extraocular motions intact. No scleral icterus. No injection or drainage. ENT: Nose without bleeding, purulent drainage or septal hematoma. Throat without erythema, tonsillar hypertrophy or exudate. Uvula midline. Airway patent. NECK: Trachea midline. No JVD or lymphadenopathy. Supple, nontender, no meningeal signs. CARDIOVASCULAR: Regular rate and rhythm without murmurs, gallops, or rubs. RESPIRATORY: Clear to auscultation. Breath sounds equal bilaterally. No wheezes , rales, or rhonchi. GASTROINTESTINAL: Nontender. No guarding or rebound. MUSCULOSKELETAL: Extremities without clubbing, cyanosis, or edema. No joint tenderness, effusion, or edema noted. NEUROLOGICAL: Awake and alert. Cranial nerves II through XII intact. Motor and sensory grossly within normal limits. Five out of 5 muscle strength in all muscle groups. Normal speech. PSYCH: Slightly flattened affect. Medications and IVs Current Medications Medications (Trade) Dose Ordered Sig/Anthony Route Start Time Stop Time Status Last Admin (Protonix Inj) 40 mg Q12H IV PUSH 05/24/17 17:00 05/26/17 05:21 Sodium Chloride 1,000 ml @ 100 mls/hr Q10H IV 05/24/17 16:59 05/26/17 07:27 (NS Flush) 2 ml UNSCH PRN IV FLUSH 05/24/17 17:00 (NS Flush) 2 ml BID IV FLUSH 05/24/17 21:00 05/24/17 20:13 (Tylenol) 650 mg Q4H PRN PO 05/24/17 17:00 (Zofran Inj) 4 mg Q6H PRN IVP 05/24/17 17:00 05/26/17 05:21 (Tylenol) 650 mg Q6H PRN PO 05/24/17 17:00 (Morphine Inj) 2 mg Q4H PRN IV PUSH 05/24/17 17:00 (Morphine Inj) 4 mg Q4H PRN IV PUSH 05/24/17 17:00 05/26/17 07:28 (Dilaudid Pf Inj) 1 mg Q4H PRN IV PUSH 05/24/17 17:00 (Narcan Inj) 0.4 mg UNSCH PRN IV PUSH 05/24/17 17:00 (Bere-Colace) 1 tab BID PO 05/24/17 21:00 (KCl) 20 meq ONCE ONCE PO 05/26/17 10:00 05/26/17 10:01 UNV A/P Assessment and Plan Gastroparesis/ Abdominal pain The pt has a history of pancreatitis, gastritis and gastroparesis. He follows with a zipper joiner as an outpt. Has not been able to eat since the night prior to admission. LFTs and lipase unremarkable. Hospitalized for the same last month. GI consult appreciated. Likely Cannabinoid Hyperemesis Syndrome. - GI follow-up as outpt. - PPI. - IVFs. - pain meds and antiemetics as needed. D/c with sucralfate. - marijuana cessation instruction given. Hypokalemia Secondary to nausea and vomiting. - Replete with IV potassium and monitor. - d/c on PO supplementation. Leukocytosis Likely reactive. - Follow CBC. Resolved. Marijuana use Daily. Apparently the pt stopped using it for two years to see if it would help with his vomiting but he resumed it as it didn't work. - cessation instruction. Hypertension Likely secondary to acute presentation. - Seems resolved. - Vasotec as needed. Hyperglycemia Hemoglobin A1c 4.9%. - Stress reaction. PPx: SCDs Discharge Planning D/c home Evan Haddad DO May 26, 2017 10:03
[2017-05-26] MEDS ORDERED: POTASSIUM CHLORIDE 10 MEQ CONTROLLED RELEASE TAB PO ONE (10:30)
== END 2017-05-26 12:09 | disposition home or self-care (01) ==
LOC: NEPC 13:33 → NEDA 15:40 → NEPFCDU 17:27
PROVIDERS: ADMIT Hospitalist; ATTEND Hospitalist
DX: R11.2 Nausea with vomiting, unspecified (principal); T40.7X5A Adverse effect of cannabis (derivatives), initial encounter; F12.10 Cannabis abuse, uncomplicated; E87.6 Hypokalemia; R10.0 Acute abdomen; D72.829 Elevated white blood cell count, unspecified; K86.1 Other chronic pancreatitis; K29.70 Gastritis, unspecified, without bleeding; R53.1 Weakness; J45.909 Unspecified asthma, uncomplicated; I10 Essential (primary) hypertension; K31.84 Gastroparesis; F90.9 Attention-deficit hyperactivity disorder, unspecified type
CPT/HCPCS: 80048; 80053; 81001; 83036; 83605; 83690; 83735; 85025; 85027; 85610; 85730; 93005; 96361; 96365; 96366; 96372; 96375; 96376; 99285; C9113; G0378; J0500; J2270; J2405; J2550; J2765; J3480; J7030

== ENCOUNTER 2017-07-18 17:29 | Emergency (ER) | payer SELFPAY ==
[~2017-07-18] VITALS: Ht 180.3 cm; Wt 100.0 kg
[~2017-07-18 17:29] MED LIST changes: -OMEP20TA PO; +PANT40TA3 PO; +RANI300T PO; +SUCR1S PO
[2017-07-18 17:32] VITALS: BP 181/123; PULSE 123; RESP 20; TEMP 97.8; O2SAT 96
[2017-07-18] MEDS ORDERED: SODIUM CHLOR 0.9% 1000 ML INJ 1,000 ML IV SCH (17:59)
[2017-07-18] MEDS ORDERED: ONDANSETRON HCL 4 MG/2 ML VIAL IVP ONE (18:00)
--- NOTE | 2017-07-18 18:02 | PD ---
HPI Chief Complaint: GI Complaint Time Seen by Provider: 17:59 Travel History International Travel<30 days: No Contact w/Intl Traveler<30days: No Traveled to known affect area: No History of Present Illness HPI c/o abdominal pain, crampy, 8/10, nonradiating , assoc with nausea and vomiting but not with fever/d/cough/tamayo/cp/abdpain PFSH Past Medical History ADHD: Yes Arthritis: No Asthma: No Autoimmune Disease: No Blood Disorders: No Anxiety: No Depression: No Heart Rhythm Problems: No Cancer: No Cardiovascular Problems: No High Cholesterol: No Chemotherapy: No Chest Pain: No Congestive Heart Failure: No COPD: No Cerebrovascular Accident: No Diabetes: No Diminished Hearing: No Endocrine: No Gastrointestinal Disorders: Yes (report hx of gastroparesis, gastroenteritis) GERD: No Genitourinary: No Hiatal Hernia: No Hypertension: Yes Immune Disorder: No Implanted Vascular Access Dvce: Yes Kidney Stones: No Musculoskeletal: No Neurologic: No Psychiatric: No Reproductive: No Respiratory: No Immunizations Current: Yes Migraines: No Pancreatitis: Yes (Chronic pancreatitis) Radiation Therapy: No Renal Failure: No Seizures: No Sickle Cell Disease: No Sleep Apnea: No Thyroid Disease: No Ulcer: No PNEUMOCCOCAL Vaccine (Year): 2 Past Surgical History Abdominal Surgery: No AICD: No Arteriovenous Shunt: No Body Medical Devices: SCREWS/PLATES IN RIGHT WRIST AND RIGHT KNEE Cardiac Surgery: No Ear Surgery: No Endocrine Surgery: No Eye Surgery: No Genitourinary Surgery: No Gynecologic Surgery: No Insulin Pump: No Joint Replacement: Yes (RIGHT KNEE screw AND RIGHT HAND SURGERY ) Oral Surgery: No Pacemaker: No Thoracic Surgery: No Other Surgery: Yes (HAND / KNEE SURGERY) Social History Alcohol Use: No Tobacco Use: No Substance Use: Yes (reports smoking marijuana) Allergies-Medications (Allergen,Severity, Reaction): Coded Allergies: cefaclor (Unverified Allergy, Severe, UNKNOWN REACTION, 05/24/17) Reported Meds & Prescriptions Reported Meds & Active Scripts Active Dronabinol 5 Mg Cap 5 Mg PO BID@11,16 3 Days Reported Ranitidine (Ranitidine HCl) 300 Mg Tab 300 Mg PO HS Pantoprazole (Pantoprazole Sodium) 40 Mg Tab 40 Mg PO DAILY Review of Systems Except as stated in HPI: all other systems reviewed are Neg General / Constitutional: No: Fever Eyes: No: Visual changes HENT: No: Headaches Cardiovascular: No: Chest Pain or Discomfort Respiratory: No: Shortness of Breath Gastrointestinal: Positive: Nausea, Vomiting Genitourinary: No: Dysuria Musculoskeletal: No: Pain Skin: No Rash Neurologic: No: Weakness Psychiatric: No: Depression Endocrine: No: Polydipsia Hematologic/Lymphatic: No: Easy Bruising Physical Exam Narrative GENERAL: SKIN: Warm and dry. HEAD: Atraumatic. Normocephalic. EYES: Pupils equal and round. No scleral icterus. No injection or drainage. ENT: No nasal bleeding or discharge. Mucous membranes pink and moist. NECK: Trachea midline. No JVD. CARDIOVASCULAR: Regular rate and rhythm. RESPIRATORY: No accessory muscle use. Clear to auscultation. Breath sounds equal bilaterally. GASTROINTESTINAL: Abdomen soft, diffusely mildly ttp, nondistended. MUSCULOSKELETAL: Extremities without clubbing, cyanosis, or edema. No obvious deformities. NEUROLOGICAL: Awake and alert. No obvious cranial nerve deficits. Motor grossly within normal limits. Five out of 5 muscle strength in the arms and legs. Normal speech. PSYCHIATRIC: Appropriate mood and affect; insight and judgment normal. Data Data Last Documented VS Vital Signs Date Time Temp Pulse Resp B/P (MAP) Pulse Ox O2 Delivery O2 Flow Rate FiO2 07/18/17 20:01 88 18 146/90 (108) 97 Room Air 07/18/17 17:32 97.8 Orders Orders Complete Blood Count With Diff (07/18/17 17:59) Comprehensive Metabolic Panel (07/18/17 17:59) Lipase (07/18/17 17:59) Abdomen, Flat & Upright (07/18/17 ) Iv Access Insert/Monitor (07/18/17 17:59) Ecg Monitoring (07/18/17 17:59) Oximetry (07/18/17 17:59) NPO (07/18/17 17:59) Ondansetron Inj (Zofran Inj) (07/18/17 18:00) Sodium Chlor 0.9% 1000 Ml Inj (Ns 1000 M (07/18/17 17:59) Morphine Inj (Morphine Inj) (07/18/17 18:15) Sodium Chlor 0.9% 1000 Ml Inj (Ns 1000 M (07/18/17 20:00) Sodium Chlor 0.9% 1000 Ml Inj (Ns 1000 M (07/18/17 20:00) Potassium Chloride (Kcl) (07/18/17 20:00) Labs Laboratory Tests Test 07/18/17 18:20 White Blood Count 12.4 TH/MM3 Red Blood Count 6.30 MIL/MM3 Hemoglobin 20.2 GM/DL Hematocrit 54.1 % Mean Corpuscular Volume 85.8 FL Mean Corpuscular Hemoglobin 32.1 PG Mean Corpuscular Hemoglobin Concent 37.4 % Red Cell Distribution Width 12.5 % Platelet Count 290 TH/MM3 Mean Platelet Volume 9.3 FL Neutrophils (%) (Auto) 78.9 % Lymphocytes (%) (Auto) 12.2 % Monocytes (%) (Auto) 8.6 % Eosinophils (%) (Auto) 0.1 % Basophils (%) (Auto) 0.2 % Neutrophils # (Auto) 9.8 TH/MM3 Lymphocytes # (Auto) 1.5 TH/MM3 Monocytes # (Auto) 1.1 TH/MM3 Eosinophils # (Auto) 0.0 TH/MM3 Basophils # (Auto) 0.0 TH/MM3 CBC Comment AUTO DIFF Differential Comment AUTO DIFF CONFIRMED Blood Urea Nitrogen 23 MG/DL Creatinine 1.37 MG/DL Random Glucose 135 MG/DL Total Protein 9.2 GM/DL Albumin 4.9 GM/DL Calcium Level 9.4 MG/DL Alkaline Phosphatase 76 U/L Aspartate Amino Transf (AST/SGOT) 20 U/L Alanine Aminotransferase (ALT/SGPT) 30 U/L Total Bilirubin 2.1 MG/DL Sodium Level 129 MEQ/L Potassium Level 2.9 MEQ/L Chloride Level 88 MEQ/L Carbon Dioxide Level 28.1 MEQ/L Anion Gap 13 MEQ/L Estimat Glomerular Filtration Rate 63 ML/MIN Lipase 149 U/L [facility] Medical Decision Making Medical Screen Exam Complete: Yes Emergency Medical Condition: Yes Medical Record Reviewed: Yes Differential Diagnosis pancreatitis v hepatitis v electrolyte abnl v viral or bacterial gastroenteritis Narrative Course nl electrolytes, no elev lft's or lipase. based on labs and cbc hemoconcentrated c/w dehydration, also noted to be hypokalemic and mild hyponatremia Diagnosis Primary Impression: Dehydration, moderate Additional Impressions: mild hyponatremia and mild hypokalemia Bacterial gastroenteritis Disposition: DISCHARGE HOME Condition: Stable Edison Barraza MD Jul 18, 2017 18:01
[2017-07-18] MEDS ORDERED: MORPHINE SULFATE 4 MG/ML INJ IV PUSH ONE (18:15)
[2017-07-18 18:34] VITALS: BP 156/104; PULSE 82; RESP 12; O2SAT 97
[2017-07-18 18:43] LABS: AUTOMATED NEUTROPHIL # 9.8 TH/MM3 (1.8-7.7); BASOPHIL % 0.2 % (0.0-2.0); EOSINOPHIL % 0.1 % (0.0-4.0); HEMATOCRIT 54.1 % (39.0-51.0); LYMPH % 12.2 % (9.0-44.0); LYMPHOCYTE # 1.5 TH/MM3 (1.0-4.8); MEAN CELL VOLUME 85.8 FL (80.0-100.0); MEAN CORPUSCULAR HEMOGLOBIN 32.1 PG (27.0-34.0); MONO % 8.6 % (0.0-8.0); NEUT % 78.9 % (16.0-70.0); PLATELET COUNT 290 TH/MM3 (150-450); RED CELL DISTRIBUTION WIDTH 12.5 % (11.6-17.2); WHITE BLOOD COUNT 12.4 TH/MM3 (4.0-11.0)
[2017-07-18 18:46] LABS: HEMO FLAGS AUTO DIFF; MEAN CORPUSCULAR HGB CONC 37.4 % (32.0-36.0)
[2017-07-18 19:18] LABS: ALKALINE PHOSPHATASE 76 U/L (45-117); ALT (GPT) 30 U/L (12-78); ANION GAP 13 MEQ/L (5-15); AST (GOT) 20 U/L (15-37); BICARBONATE 28.1 MEQ/L (21.0-32.0); BLOOD UREA NITROGEN 23 MG/DL (7-18); CHLORIDE 88 MEQ/L (98-107); GLOMERULAR FILTRATION RATE 63 ML/MIN (>89); SODIUM (NA) 129 MEQ/L (136-145); TOTAL BILIRUBIN ADULT 2.1 MG/DL (0.2-1.0)
[2017-07-18 19:28] LABS: POTASSIUM 2.9 MEQ/L (3.5-5.1)
[2017-07-18 19:39] LABS: SCAN/DIFF AUTO DIFF CONFIRMED
[2017-07-18] MEDS ORDERED: SODIUM CHLOR 0.9% 1000 ML INJ 1,000 ML IV ONE ×2 (20:00)
[2017-07-18] MEDS ORDERED: POTASSIUM CHLORIDE 10 MEQ CONTROLLED RELEASE TAB PO ONE (20:00)
[2017-07-18 20:01] VITALS: BP 146/90; PULSE 88; RESP 18; O2SAT 97
--- NOTE | 2017-07-18 20:06 | RADRPT ---
EXAM DATE/TIME: 07/18/2017 18:55 [facility] COMPARISON: No previous studies available for comparison. INDICATIONS : Abdominal pain and vomiting for 4 days. MEDICAL HISTORY : Pancreatitis. Hypertension SURGICAL HISTORY : None. ENCOUNTER: Initial ACUITY: 4 - 6 days PAIN SCORE: 10/10 LOCATION: Bilateral abdominal FINDINGS: Supine and upright views of the abdomen were performed. The abdominal bowel gas pattern is normal. No air fluid levels are seen. No abnormal masses, calcifications, or organomegaly is seen. The visu alized lower lungs are clear. No evidence of free intraperitoneal gas. The osseous structures are u nremarkable. CONCLUSION: Normal examination. Good Doan MD on July 18, 2017 at 20:04 Board Certified Radiologist. This report was verified electronically.
[2017-07-18] MEDS ORDERED: POTA-163 PO (21:48)
[2017-07-18] MEDS ORDERED: TRAM50 PO (21:48)
[2017-07-18] MEDS ORDERED: ZOFR4TAB3 SL (21:48)
== END 2017-07-18 21:56 | disposition home or self-care (01) ==
LOC: NEPD 17:29
DX: E86.0 Dehydration (principal); K52.89 Other specified noninfective gastroenteritis and colitis; E87.1 Hypo-osmolality and hyponatremia; E87.6 Hypokalemia; F90.9 Attention-deficit hyperactivity disorder, unspecified type; I10 Essential (primary) hypertension; Z79.899 Other long term (current) drug therapy; Z88.8 Allergy status to other drugs, medicaments and biological substances; Z87.19 Personal history of other diseases of the digestive system
CPT/HCPCS: 74020; 80053; 83690; 85025; 96361; 96374; 96375; 99284; J2270; J2405; J7030